=== PATIENT | male | born 1945 | race Caucasian/White ===

== ENCOUNTER 2024-07-11 19:17 | Inpatient (IN) | payer MEDICARE, OTHER, SELFPAY ==
[2024-07-11] VITALS (20 sets, daily range): BP systolic 73–118; BP diastolic 55–82; PULSE 80; BMI 27.3; BMI 26.3
--- NOTE | 2024-07-11 14:51 | EDRN ---
Kalen CALERO in room w/ pt at this time.
--- NOTE | 2024-07-11 14:55 | ED.GENMED ---
History of Present Illness
<Binta Dowell PA-C - Last Filed: 07/11/24 18:04>
General
Chief Complaint: Breathing Problem
Source: patient and ambulance crew
Time Seen by Provider: 07/11/24 14:47
History of Present Illness
History of Present Illness:
79yoM with a history of coronary artery disease, CHF, atrial fibrillation, COPD, hypertension, and hyperlipidemia presenting via EMS for evaluation of shortness of breath. Patient is a resident at the [facility]. Patient was started on a 10
day course of doxycycline for pneumonia last week. He has 3 doses left of his course. He started having worsening cough and dyspnea over the past 24 hours. EMS was called today due to his symptoms. He was found to be 84% on EMS arrival with
decreased breath sounds. He received a nebulizer treatment and 10mg IV Decadron prehospital. No fevers or chest pain.
Past History
<Binta Dowell PA-C - Last Filed: 07/11/24 18:04>
Past History
ED Past Medical History: Arrthythmia, CHF, HTN and SD
ED Past Surgical History: Orthopedic
Social History
Tobacco: Former smoker
Alcohol: None
Living: with family
Phy Exam
<Binta Dowell PA-C - Last Filed: 07/11/24 18:04>
General Physical Exam
General Presentation: mild distress
General Skin: warm and dry
General Habitus: normal
General Mental: alert
Cardiovascular Exam
Cardiovascular Exam: regular rate/rhythm and other (1+ pitting edema to bilateral lower extremities)
Pulmonary Exam
Pulmonary Exam: decreased breath sounds and other (Decreased breath sounds throughout. +Frequent cough. Mild respiratory distress noted. )
Skin Exam
Skin Exam: normal color and warm/dry
Psychiatric Exam
Psychiatric Exam: normal mood/affect
Scores
<Binta Dowell PA-C - Last Filed: 07/11/24 18:04>
Heart Failure Risk
Heart Failure Risk Score: Not Applicable
Course
<Binta Dowell PA-C - Last Filed: 07/11/24 18:04>
Orders/Labs/Results
Orders:
Orders
07/11/24 14:54
Electrocardiogram (*1) Urgent
Reason for Study: Shortness of Breath
EKG- Treatment ONCE
Albuterol Nebs [Ventolin Nebules] 5 mg INH R NOW STA
Ipratropium Nebs [Atrovent Nebules] 0.5 mg INH R NOW STA
07/11/24 14:55
CR Chest - 2 Views Urgent
Comment:
Reason For Exam: SOB
07/11/24 15:18
COVID-19 Antigen Urgent
Source: Nasal Swab
Complete Blood Count/With Diff Urgent
Comprehensive Metabolic Panel Urgent
Influenza A+B Rapid Molecular Urgent
ISRA Source: Nasal Swab
Specimen Description:
07/11/24 15:29
NT-proBNP Urgent
Troponin I Urgent
Venous Blood Gas Urgent
%Oxygen/Room Air: 2L
07/11/24 16:18
Potassium Urgent
Blood Culture Urgent
ISRA Source: Blood/Venous
Specimen Description:
07/11/24 16:19
Lactate Level [Lactic Acid] Urgent
07/11/24 16:47
Cefepime HCl [Maxipime] 2,000 mg IV NOW STA
07/11/24 16:48
Blood Culture Routine
ISRA Source: Blood/Venous
Specimen Description:
07/11/24 17:53
Saleem Catheter [Catheter- Indwelling] As Directed
Reason for insertion: Acute Kidney Injury
Discontinue Date/Time: 07/14/24 0600
07/11/24 17:54
Intake/ Output As Directed
Frequency: Per unit guidelines
Comment: strict intake and output monitoring
Weight As Directed
Frequency: Daily
Abnormal Lab Results
07/11/24 07/11/24 07/11/24
15:18 15:29 16:18
WBC 14.0 H 10^3/uL
(4.8-10.8)
RBC 3.17 L 10^6/uL
(4.70-6.10)
Hgb 10.0 L g/dL
(13.0-18.0)
Hct 28.5 L %
(39.0-52.0)
MCH 31.5 H pg
(27.0-31.0)
RDW 16.1 H %
(11.5-14.5)
MPV 11.7 H fL
(7.4-10.4)
Abs Immat Gran (auto) 0.1 H 10^3/uL
(0-0.05)
Absolute Neuts (auto) 11.1 H 10^3/uL
(1.4-6.5)
Absolute Monos (auto) 0.9 H 10^3/uL
(0.1-0.6)
Neutrophils % 79.6 H %
(42.2-75.2)
Lymphocytes % 11.7 L %
(20.5-51.1)
VBG pH 7.28 L
(7.32-7.43)
VBG pCO2 55 H mmHg
(35-48)
Potassium 5.8 H mmol/L 5.6 H mmol/L
(3.5-5.1) (3.5-5.1)
Chloride 108 H mmol/L
(98-107)
Carbon Dioxide 21 L mmol/L
(22-30)
BUN 44 H mg/dl
(9-20)
Creatinine 2.7 H mg/dL
(0.7-1.3)
Glucose 102 H mg/dl
(70-99)
AST 227 H U/L
(17-59)
ALT 146 H U/L
(0-50)
Alkaline Phosphatase 189 H U/L
(38-126)
Total Protein 5.9 L g/dl
(6.3-8.2)
Albumin 2.9 L g/dl
(3.5-5.0)
07/11/24 15:18
07/11/24 16:18
Vital Signs
Initial and Last Documented VS:
Initial Vital Signs
Temp Pulse Resp Pulse Ox
98 F 94 22 89
07/11/24 14:52 07/11/24 14:52 07/11/24 14:52 07/11/24 14:52
Last Documented Vital Signs
Temp Pulse Resp BP Pulse Ox
98 F 96 24 101/64 94
07/11/24 14:52 07/11/24 17:30 07/11/24 17:30 07/11/24 17:00 07/11/24 17:30
<Jeannine Rowell, DO - Last Filed: 07/11/24 16:45>
Orders/Labs/Results
Orders:
Orders
07/11/24 14:54
Electrocardiogram (*1) Urgent
Reason for Study: Shortness of Breath
EKG- Treatment ONCE
Albuterol Nebs [Ventolin Nebules] 5 mg INH R NOW STA
Ipratropium Nebs [Atrovent Nebules] 0.5 mg INH R NOW STA
07/11/24 14:55
CR Chest - 2 Views Urgent
Comment:
Reason For Exam: SOB
07/11/24 15:18
COVID-19 Antigen Urgent
Source: Nasal Swab
Complete Blood Count/With Diff Urgent
Comprehensive Metabolic Panel Urgent
Influenza A+B Rapid Molecular Urgent
ISRA Source: Nasal Swab
Specimen Description:
07/11/24 15:29
NT-proBNP Urgent
Troponin I Urgent
Venous Blood Gas Urgent
%Oxygen/Room Air: 2L
07/11/24 16:18
Potassium Urgent
Blood Culture Urgent
ISRA Source: Blood/Venous
Specimen Description:
07/11/24 16:19
Lactate Level [Lactic Acid] Urgent
07/11/24 16:47
Cefepime HCl [Maxipime] 2,000 mg IV NOW STA
07/11/24 16:48
Blood Culture Routine
ISRA Source: Blood/Venous
Specimen Description:
07/11/24 17:53
Saleem Catheter [Catheter- Indwelling] As Directed
Reason for insertion: Acute Kidney Injury
Discontinue Date/Time: 07/14/24 0600
07/11/24 17:54
Intake/ Output As Directed
Frequency: Per unit guidelines
Comment: strict intake and output monitoring
Weight As Directed
Frequency: Daily
Abnormal Lab Results
07/11/24 07/11/24 07/11/24
15:18 15:29 16:18
WBC 14.0 H 10^3/uL
(4.8-10.8)
RBC 3.17 L 10^6/uL
(4.70-6.10)
Hgb 10.0 L g/dL
(13.0-18.0)
Hct 28.5 L %
(39.0-52.0)
MCH 31.5 H pg
(27.0-31.0)
RDW 16.1 H %
(11.5-14.5)
MPV 11.7 H fL
(7.4-10.4)
Abs Immat Gran (auto) 0.1 H 10^3/uL
(0-0.05)
Absolute Neuts (auto) 11.1 H 10^3/uL
(1.4-6.5)
Absolute Monos (auto) 0.9 H 10^3/uL
(0.1-0.6)
Neutrophils % 79.6 H %
(42.2-75.2)
Lymphocytes % 11.7 L %
(20.5-51.1)
VBG pH 7.28 L
(7.32-7.43)
VBG pCO2 55 H mmHg
(35-48)
Potassium 5.8 H mmol/L 5.6 H mmol/L
(3.5-5.1) (3.5-5.1)
Chloride 108 H mmol/L
(98-107)
Carbon Dioxide 21 L mmol/L
(22-30)
BUN 44 H mg/dl
(9-20)
Creatinine 2.7 H mg/dL
(0.7-1.3)
Glucose 102 H mg/dl
(70-99)
AST 227 H U/L
(17-59)
ALT 146 H U/L
(0-50)
Alkaline Phosphatase 189 H U/L
(38-126)
Total Protein 5.9 L g/dl
(6.3-8.2)
Albumin 2.9 L g/dl
(3.5-5.0)
07/11/24 15:18
07/11/24 16:18
Vital Signs
Initial and Last Documented VS:
Initial Vital Signs
Temp Pulse Resp Pulse Ox
98 F 94 22 89
07/11/24 14:52 07/11/24 14:52 07/11/24 14:52 07/11/24 14:52
Last Documented Vital Signs
Temp Pulse Resp BP Pulse Ox
98 F 96 24 101/64 94
07/11/24 14:52 07/11/24 17:30 07/11/24 17:30 07/11/24 17:00 07/11/24 17:30
<Binta Dowell PA-C - Last Filed: 07/11/24 18:04>
MDM/Problems Addressed
Differential Diagnosis Includes:
79yoM here with SOB. Currently on doxycycline for pneumonia. Symptoms worsening over the past 24 hours. Hypoxic to 84% for EMS. Received IV Decadron prehospital. Patient in mild respiratory distress on arrival. Decreased breath sounds
throughout. Oxygen saturation 89%. Differential diagnosis includes but is not limited to: Pneumonia, COPD exacerbation, CHF exacerbation, COVID
Initial ED plan: Check cardiac labs, COVID/flu swab, lactate, blood cultures, EKG, and chest x-ray. Will give DuoNeb and reassess.
<Binta Dowell PA-C - Last Filed: 07/11/24 18:04>
*EKG
Interpreted by ED Provider?: Yes
EKG Intrepretation Date: 07/11/24
Heart Rate: 92
Rate: normal
Rhythm: sinus
[place]: left axis deviation
Interval: normal interval
Ischemia: non-specific ST changes
*Critical Care Note
Total Time (30-74mins, 75-104mins- exclusive of procedures): Not Applicable
<Binta Dowell PA-C - Last Filed: 07/11/24 18:04>
Update Note
Update Note:
COVID/flu negative. WBC 14, lactate is normal. CXR shows a L pleural effusion which daughter states he has a history of. Patient given IV Rocephin and was admitted for further management.
ED Attending Note
<JALEEL Damico Last Filed: 07/11/24 18:04>
-
Portions of this chart may have been created with voice recognition software.� Occasional wrong word or��sound alike� substitutions may have occurred due to the inherent limitations of voice recognition software.
<Jeannine Rowell DO - Last Filed: 07/11/24 16:45>
ED Attending Note
Patient seen and examined by attending physician: Yes
I performed the substantive portion of visit, reviewed & personally made and approve the management plan that is documented in note by myself or LEYDA.: Yes
I performed a history and physical exam of patient and discussed management with resident, I reviewed resident's note and agree with documented findings and plan of care.: Yes
ED Attending Note:
79-year-old male with history of CHF, COPD, A-fib on Eliquis, hypertension presenting to the emergency department for shortness of breath. Patient has had ongoing cough for more than a week, with diagnosed with pneumonia and started on doxycycline.
Daughter at bedside, notes no improvement in his symptoms. Prior to arrival, noted to have hypoxia per medics, placed on supplemental O2. Patient and daughter at bedside report no increased swelling to lower extremities. Patient without any
oxygen requirements at home. Patient denies any chest pain or fever. Vital signs significant for prehospital hypoxia and tachypnea.
On exam, patient is well-appearing, no acute distress, stable on supplemental O2. On lung exam, no focal abnormal lung sounds, no increased work of breathing. No lower extremity edema. Concern for failure of outpatient therapy with worsening
pneumonia versus CHF exacerbation. Plan for laboratory analysis, chest x-ray imaging. Will hold on fluids given known history of CHF.
16:00 - Patient with leukocytosis, will add lactic acid and blood culture. Again holding fluids for known CHF, pending chest x-ray imaging.
16:45 -chest x-ray shows a large left-sided pleural effusion. Will start broad-spectrum antibiotics, plan for admission.
Discharge Plan
Departure
Patient Disposition: Admit
Date of Disposition: 07/11/24
Time of Disposition: 16:59
Presentation/result/management discussed w/ accepting MD/DO: Hospitalist
Discharge Problem:
Acute hypoxemic respiratory failure
Prescriptions:
No Action
atorvastatin 80 MG tablet
80 mg PO DAILY
amiodarone [Pacerone] 200 MG tablet
200 mg PO DAILY
sertraline 100 MG tablet
100 mg PO DAILY
pantoprazole 40 MG tablet,delayed release (DR/EC)
40 mg PO DAILY
folic acid 1 MG tablet
1 mg PO DAILY
finasteride 5 MG tablet
5 mg PO DAILY
multivitamin with folic acid [Tab-A-Mone] 1 TABLET tablet
1 tab PO DAILY
Breztri Aerosphere 10.7 GM HFA aerosol inhaler
2 puff inhalation R BID
potassium chloride [Klor-Con M20] 20 MEQ tablet,ER particles/crystals
20 meq PO DAILY 30 Days Qty: 30 0RF
doxycycline hyclate 100 mg Capsule
100 mg PO BID
loperamide [Anti-Diarrhea] 2 mg Tablet
2 mg PO TID PRN (Reason: diarrhea)
allopurinol 100 mg Tablet
100 mg PO DAILY
spironolactone 25 mg Tablet
25 mg PO DAILY
ascorbic acid (vitamin C) [Vitamin C] 500 mg Tablet
500 mg PO DAILY
ferrous sulfate 325 mg (65 mg iron) Tablet
325 mg PO DAILY
bumetanide 0.5 mg Tablet
0.5 mg PO DAILY
albuterol sulfate [Ventolin HFA] 90 mcg/actuation Hfa Aerosol Inhaler
2 puff INHALATION Q6H PRN (Reason: SOB, wheezing)
ezetimibe 10 mg Tablet
10 mg PO DAILY
metoprolol tartrate 25 mg Tablet
25 mg PO BID
acetaminophen [Tylenol] 325 mg Capsule
650 mg PO Q4H PRN (Reason: temp >101)
Forrest Protect (zinc oxide) 12 % Cream
1 applic TOPICAL BID
Rx Instructions:
to coccyx
Forrest Protect (zinc oxide) 12 % Cream
1 applic TOPICAL BID PRN (Reason: coccyx prn wound care)
Eliquis 2.5 mg Tablet
2.5 mg PO BID
Insta-Glucose (with dextrin) 24 gram/31 gram Gel
1 ea PO PRN PRN (Reason: hypoglycemia)
Jardiance 10 mg Tablet
10 mg PO DAILY
[place] PFS 1-Pack Syringe 1 mg/0.2 mL Syringe
1 mg SC Q20M PRN (Reason: hypoglicemia)
Referrals:
Vikash De Souza MD [Family Provider] -
Interventions
Interventions:
*Risk Screen - Suicide Last Done: 07/11/24 14:56
*General Assessment Last Done: 07/11/24 14:56
*Neglect/Abuse Screening Last Done: 07/11/24 14:56
ED- Fall Risk Assessment Last Done: 07/11/24 14:56
*ED COVID-19 Vaccine History Last Done: 07/11/24 14:56
ED- Cardiac Assessment Last Done: 07/11/24 15:46
ED- Pulmonary Assessment Last Done: 07/11/24 15:46
Discharge Date and Time
Print Language: DUTCH
[2024-07-11 15:37] LABS: Venous Blood Gas B.E. -1.5 mmol/L (-4 to +4); Venous Blood Gas HCO3 25.8 mmol/L (22-27); Venous Blood Gas pCO2 55 mmHg (35-48); Venous Blood Gas pH 7.28 (7.32-7.43); Venous Blood Gas pO2 45 mmHg (30-50)
[2024-07-11 15:40] LABS: Hematocrit 28.5 % (39.0-52.0); Mean Corp Hgb Conc. 35.1 g/dL (33.0-37.0); Mean Corpuscular Hgb 31.5 pg (27.0-31.0); Mean Corpuscular Volume 89.9 fL (80.0-94.0); Mean Platelet Volume 11.7 fL (7.4-10.4); Platelet Count 373 10^3/uL (130-400); Red Blood Cell Count 3.17 10^6/uL (4.70-6.10); Red Cell Dist. Width 16.1 % (11.5-14.5)
--- NOTE | 2024-07-11 15:48 | EDRN ---
Dr. Rowell in room w/pt at this time.
[2024-07-11 15:49] LABS: ALT (SGPT) 146 U/L (0-50); AST (SGOT) 227 U/L (17-59); Albumin 2.9 g/dl (3.5-5.0); Alkaline Phosphatase 189 U/L (38-126); Blood Urea Nitrogen 44 mg/dl (9-20); Calcium 8.7 mg/dl (8.4-10.2); Carbon Dioxide 21 mmol/L (22-30); Chloride 108 mmol/L (98-107); Estimated Creatinine Clearance 23 ml/min; Glucose 102 mg/dl (70-99); Potassium 5.8 mmol/L (3.5-5.1); Sodium 140 mmol/L (135-145); Total Bilirubin 1.1 mg/dl (0.2-1.3); Total Protein 5.9 g/dl (6.3-8.2)
[2024-07-11 15:50] LABS: % Basophils 0.6 % (0-2); % Eosinophils 1.1 % (0-6); % Immature Granulocytes 0.4 % (0-0.5); % Lymphocytes 11.7 % (20.5-51.1); % Monocytes 6.6 % (1.7-9.3); % Neutrophils 79.6 % (42.2-75.2); Absolute Basophils 0.1 10^3/uL (0-0.2); Absolute Eosinophils 0.2 10^3/uL (0-0.7); Absolute Immature Granulocytes 0.1 10^3/uL (0-0.05); Absolute Lymphocytes 1.6 10^3/uL (1.2-3.4); Absolute Monocytes 0.9 10^3/uL (0.1-0.6); Absolute Neutrophils 11.1 10^3/uL (1.4-6.5); Nucleated Red Blood Cells % 0 % (-)
[2024-07-11] MEDS: ATROVENT NEBULES 0.5 MG INH (15:50)
[2024-07-11] MEDS: VENTOLIN NEBULES 5 MG INH (15:50)
[2024-07-11 15:54] LABS: COVID-19 Antigen Negative (Negative)
[2024-07-11 16:01] LABS: NT-proBNP 5680 pg/ml; Troponin I 0.014 ng/ml
[2024-07-11 16:40] LABS: Lactic Acid 1.6 mmol/L (0.7-2.0)
[2024-07-11 17:25] LABS: Potassium 5.6 mmol/L (3.5-5.1)
--- NOTE | 2024-07-11 17:25 | EDRN ---
Pt had a saturated depends on that was changed at this time.
--- NOTE | 2024-07-11 17:27 | EDRN ---
Pt had sacral redness noted over bilateral buttocks as well, no open areas noted at this time, daughter stated a tiny open area was noted 07/10. Pt has multiple scabs on bilateral legs and wounds on bilateral great and #2 toes both feet. Daughter
stated to this nurse pt has been falling a lot.
[2024-07-11] MEDS: MAXIPIME 2000 MG IV (17:28)
--- NOTE | 2024-07-11 17:40 | EDRN ---
My CALERO in room w /pt
[2024-07-11] MEDS: LOKELMA 10 GRAM PO (18:24)
--- NOTE | 2024-07-11 18:26 | HPS.HSE ---
Family Physician
-
Family Physician: Vikash De Souza
Chief Complaint
-
Cough and Shortness of Breath
History of Present Illness
Patient is an 79yo male with a history of CAD, CHF, A-Fib, cirrhosis, COPD not on home oxygen, HTN, HLD, and BPH presents from assisted living ([facility]) for cough and SOB. His symptoms first started a couple weeks ago. He was then
diagnosed with a pneumonia and placed on a 10-day course of doxycycline, which he has been taking for 6 days now. However, today his dyspnea and cough acutely worsened and EMS found his O2 at 84%. He has not had fever, chills or night sweats over
the past couple weeks. His cough is nonproductive. A few days ago he received several additional doses of bumetanide for increased swelling in his right hand with some improvement. Patient denies any chest pains or palpitations.
Medical History
Past Medical History
Past Medical History: Reports Other
Additional Past Medical History:
Coronary Artery Disease s/p stent
Chronic HFpEF
Paroxysmal Atrial Fibrillation
Subdural Hematoma
Essential Hypertension
Orthostatic Hypotension
Hyperlipidemia
CKD Stage IIIB
COPD
BPH
GERD / GI Bleed
Depression
Progressive Cognitive Decline
Alcohol Use Disorder
Alcohol Cirrhosis
Gout
Past Surgical History: Reports Other
Additional Past Surgical History:
Bilateral knee replacement
Left carpal tunnel
Tonsillectomy
Appendectomy
Social History
Tobacco: Former Smoker (Quit over 50 years ago)
Alcohol: Former (Quit in May 2024)
Living: Assisted Living
Family History
Family History: Not pertinent
Allergies / Home Medications
Allergies reflects when Allergies were last updated in [employer].
Home Medications with original date entered in [employer]
Allergy/Medication List:
Allergies
Allergy/AdvReac Type Severity Reaction Status Date / Time
No Known Allergies Allergy Unverified 05/09/21 17:00
Home Medications
amiodarone 200 mg tablet (Pacerone) 200 mg PO DAILY Arrhythmia 05/09/21
atorvastatin 80 mg tablet 80 mg PO DAILY High cholesterol 05/09/21
budesonide 160 mcg-glycopyr 9 mcg-formot 4.8 mcg/actuation HFA inhaler (Breztri Aerosphere) 2 puff inhalation R BID Lung/breathing issues 05/09/21
finasteride 5 mg tablet 5 mg PO DAILY Urinary issue 05/09/21
folic acid 1 mg tablet 1 mg PO DAILY Supplement 05/09/21
multivitamin with folic acid 400 mcg tablet (Tab-A-Mone) 1 tab PO DAILY Supplement 05/09/21
pantoprazole 40 mg tablet,delayed release 40 mg PO DAILY Gastrointestinal issue 05/09/21
sertraline 100 mg tablet 100 mg PO DAILY Mental Health/Anxiety 05/09/21
potassium chloride 20 mEq tablet,extended release(part/cryst) (Klor-Con M) 20 meq PO DAILY 30 days #30 tabs 05/13/21
acetaminophen 325 mg capsule (Tylenol) 650 mg PO Q4H PRN temp >101 07/11/24
albuterol sulfate 90 mcg/actuation aerosol inhaler (Ventolin HFA) 2 puff inhalation Q6H PRN SOB, wheezing 07/11/24
allopurinol 100 mg tablet 100 mg PO DAILY 07/11/24
apixaban 2.5 mg tablet (Eliquis) 2.5 mg PO BID 07/11/24
ascorbic acid (vitamin C) 500 mg tablet (Vitamin C) 500 mg PO DAILY 07/11/24
bumetanide 0.5 mg tablet 0.5 mg PO DAILY 07/11/24
rcntbbtf-upgczer-bgseuij 24 gram/31 gram oral gel (Insta-Glucose (with dextrin)) 1 ea PO PRN PRN hypoglycemia 07/11/24
doxycycline hyclate 100 mg capsule 100 mg PO BID 07/11/24
empagliflozin 10 mg tablet (Jardiance) 10 mg PO DAILY 07/11/24
ezetimibe 10 mg tablet 10 mg PO DAILY 07/11/24
ferrous sulfate 325 mg (65 mg iron) tablet 325 mg PO DAILY 07/11/24
glucagon 1 mg/0.2 mL subcutaneous syringe ([place] PFS 1-Pack) 1 mg SC Q20M PRN hypoglicemia 07/11/24
loperamide 2 mg tablet 2 mg PO TID PRN diarrhea 07/11/24
metoprolol tartrate 25 mg tablet 25 mg PO BID 07/11/24
spironolactone 25 mg tablet 25 mg PO DAILY 07/11/24
zinc oxide 12 % topical cream (Forrest Protect (zinc oxide)) 1 applic topical BID 07/11/24
zinc oxide 12 % topical cream (Forrest Protect (zinc oxide)) 1 applic topical BID PRN coccyx prn wound care 07/11/24
Review of Systems
-
A 12 point ROS was completed and negative except as noted: Yes
Constitutional: Denies Fever or Chills
Respiratory: Reports Cough and Trouble Breathing
Cardiac: Denies Chest Pain or Palpitations
Abdomen/GI: Denies Abdominal Pain
: Reports Frequency and Urgency; Denies Dysuria
Physical Exam
Vital Signs
Vital Signs
Temp Pulse Resp BP Pulse Ox
98 F 100 22 91/71 93
07/11/24 14:52 07/11/24 18:09 07/11/24 18:09 07/11/24 18:09 07/11/24 18:09
Physical Exam
General: Comfortable and Conversant
HEENT: Anicteric, Moist mucous membranes and Oxygen (Nasal Cannula)
Respiratory: Other (Absent breath sounds in left middle and lower regions otherwise clear)
Cardiac: S1/S2 and Regular Rhythm
GI: Soft and Non Tender
Rectal: Deferred by Provider
Musculoskeletal: No Clubbing, No Cyanosis and Other (+2 pitting edema bilateral lower extremities)
Skin: Warm and Dry
Neuro: Awake, Alert and Nonfocal/grossly intact
Psych: Calm
Laboratory Results
-
07/11/24 15:18
Laboratory Results
Lactic Acid 1.6 mmol/L (0.7-2.0) 07/11/24 16:19
Total Bilirubin 1.1 mg/dl (0.2-1.3) 07/11/24 15:18
AST 227 U/L (17-59) H 07/11/24 15:18
ALT 146 U/L (0-50) H 07/11/24 15:18
Alkaline Phosphatase 189 U/L (38-126) H 07/11/24 15:18
Troponin I 0.014 ng/ml 07/11/24 15:29
Data Reviewed
-
Lab Data: Labs Reviewed by me
Impression/Plan
-
Acute Hypoxic Respiratory Insufficiency secondary to CHF and Pleural Effusion
-Continue supplemental oxygen
-Wean as able
Left Pleural Effusion, possibly related to heart failure vs empyema
-Consult IR
-Hold Eliquis for thoracentesis per IR
-Fluid studies ordered
-Broaden antibiotics to Vancomycin and Cefepime
Hyperkalemia and Acute Kidney Injury on CKD III
-Creatinine 2.16 on Jun 10
-Place Saleem catheter
-Hold potassium supplement and spironolactone
-Hold Jardiance
-Repeat potassium later this evening and in AM
Chronic HFpEF, possible component of acute
-Difficult situation in setting of hypotension
-Consult Cardiology
-Check Echocardiogram
-Monitor Is&Os and Daily Weights
Paroxysmal Atrial Fibrillation
-Eliquis on hold of thoracentesis
-Continue amiodarone for rhythm control
-Hold Metoprolol due to low BP
Hyperlipidemia
-Continue atorvastatin and Zetia
COPD
-Continue Pulmicort Neb and Duoneb QID and PRN
Depression
-Continue sertraline
Progressive Cognitive Decline
-Monitor for mood/behavior changes during hospitalization
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
-Stable
DVT proph: SCDs until able to resume Eliquis
Code Status: DNR
[2024-07-11] MEDS: NOVOLIN R 10 UNITS IV (18:27)
--- NOTE | 2024-07-11 18:30 | EDRN ---
Unable to take wound pix of areas seen as camera battery was .
[2024-07-11] MEDS: DEXTROSE 50% SYRINGE 25 GRAMS IV (18:32)
--- NOTE | 2024-07-11 18:36 | EDRN ---
Pt administered a diet gena marla after hospitalist Dr. Jayne sahniayed it.
--- NOTE | 2024-07-11 19:11 | W.PN.UPDATE ---
Update Note
Progress Note Update
This is an addendum to the H&P written by Jerilyn Browne on 07/11/2024.
Patient seen and examined independently with PA. 79-year-old male past medical history of CAD, CHF, atrial fibrillation, cirrhosis, COPD, hypertension, hyperlipidemia, BPH presenting for cough and shortness of breath starting few weeks ago treated
with doxycycline. Today with worsening of cough and shortness of breath.
Labs show leukocytosis, hypokalemia, CHUY and transaminitis. Cardiac BNP 5600. Chest x-ray shows moderate left pleural effusion with adjacent parenchymal opacity which is increased from prior.
Labs seem to be consistent with CHF exacerbation however with hypotension with blood pressure in the 90s, tachycardia and leukocytosis there is concern for sepsis secondary to pneumonia/empyema.
Cannot diurese due to hypotension. Check blood cultures. Vancomycin/cefepime. IR consulted for thoracentesis. Hold antihypertensives. Check echocardiogram. Cardiology consulted. IR requesting that we hold Eliquis.
Hyperkalemia secondary to spironolactone/potassium supplementation so hold.
[2024-07-11] MEDS: PULMICORT 0.5 MG INH (20:11)
[2024-07-11] MEDS: DUONEB 3 ML INH (20:12)
[2024-07-11] MEDS: MUCINEX 600 MG PO (21:06)
[2024-07-11] MEDS: ProAmatine 10 MG PO (21:06)
[2024-07-11 21:42] LABS: Potassium 5.6 mmol/L (3.5-5.1)
[2024-07-11] MEDS: VANCOCIN 540 MG IV (21:56)
--- NOTE | 2024-07-11 22:33 | PHA.VAN.IN ---
Assessment
- Assessment
Renal Function: Appears elevated from baseline
Maximum Temperature: 97.9
Minimum Temperature: 98
Concomitant Antimicrobials: cefepine
Plan
- Plan
Initial / Loading Dose: 2000mg 07/11 21:56
Maintenance Regimen: dose by level
Monitoring: r 8 am
MRSA Screen: Ordered per protocol (PCR)
Pharmacokinetics Vancomycin I
- -
Patient Age: 79
Patient Sex: Male
Vancomycin Day #: 1
Indication: Pulmonary/Respiratory
Requesting Provider: GALILEA Sheikh
Pertinent Antimicrobial Allergies:
no known allergies
Height / Weight:
Height 5 ft 10 in
Actual Weight 83.1 kg
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
- Vital Signs / Lab Results
Temp Pulse Resp BP Pulse Ox
97.9 F 92 16 96/67 98
07/11/24 19:45 07/11/24 21:06 07/11/24 20:15 07/11/24 21:06 07/11/24 20:15
Lab Results - Hematology
07/11/24
15:18
WBC 14.0 H
Lab Results - Chemistry
07/11/24
15:18
BUN 44 H
Creatinine 2.7 H
Estimated Creat Clear 23
Albumin 2.9 L
07/11/24
16:19
Lactic Acid 1.6
Microbiology Results
07/11/24 15:18 Influenza Types A & B (DEYANIRA) - Final
Nasal Swab Negative for Influenza A & B, NAAT
Negative results must be combined with clinical observations
and patient history.
Nucleic Acid Amplification test (NAAT)performed on the
[employer] platform.
[2024-07-12] VITALS (54 sets, daily range): BP systolic 75–189; BP diastolic 55–169; PULSE 83–85; BMI 26.8
[2024-07-12 00:03] LABS: Glucose - Point of Care 121 mg/dl (70-99)
[2024-07-12] MEDS: NSS 250 IV (00:10)
[2024-07-12 01:31] LABS: Potassium 5.4 mmol/L (3.5-5.1)
--- NOTE | 2024-07-12 03:49 | PTCARENOTE ---
Addendum entered by Johanna Blevins RN 07/12/24 07:32:
correction *CPAP
Addendum entered by Johanna Blevins RN 07/12/24 06:27:
Pt morning labs show H&H drop and k still at 5.4. Night GRADUATE ADVISOR made aware.
Original Note:
Pt admit from ED. Pt AAO to self, confusion on where he is but knows he is confused. Pt on 2L NC spo2 95%. Pt having hypotension nigh GRADUATE ADVISOR made aware. Midodrine ordered. Pt placed on BiPAP per GRADUATE ADVISOR order. Pt tolerating for a hour at a time. Later in
shift admitting PA (Pavan) ordering 250 NS bolus. Saleem placed per order for strict I&O for CHUY. Pt having orders for glucose checks, verified with admitting PA (Pavan) only one time glucose check needed. MID line placed for access due to
edema. Assessment care and vitals as needed.
[2024-07-12 04:52] LABS: Hematocrit 24.3 % (39.0-52.0); Hemoglobin 8.6 g/dL (13.0-18.0); Mean Corp Hgb Conc. 35.4 g/dL (33.0-37.0); Mean Corpuscular Hgb 32.3 pg (27.0-31.0); Mean Corpuscular Volume 91.4 fL (80.0-94.0); Mean Platelet Volume 11.9 fL (7.4-10.4); Platelet Count 306 10^3/uL (130-400); Red Blood Cell Count 2.66 10^6/uL (4.70-6.10); Red Cell Dist. Width 15.9 % (11.5-14.5); White Blood Cell Count 17.8 10^3/uL (4.8-10.8)
[2024-07-12 05:15] LABS: Blood Urea Nitrogen 44 mg/dl (9-20); Calcium 8.7 mg/dl (8.4-10.2); Carbon Dioxide 22 mmol/L (22-30); Chloride 107 mmol/L (98-107); Estimated Creatinine Clearance 21 ml/min; Glucose 127 mg/dl (70-99); LDH 282 U/L (120-246); Magnesium 1.8 mg/dl (1.6-2.3); Potassium 5.4 mmol/L (3.5-5.1); Sodium 141 mmol/L (135-145); Total Protein 5.2 g/dl (6.3-8.2)
[2024-07-12 05:31] LABS: Vancomycin Random 23.3 ug/ml
[2024-07-12] MEDS: MAXIPIME 1000 MG IV ×2 (06:19→18:19)
[2024-07-12] MEDS: LOKELMA 10 GRAM PO ×3 (06:19→18:19)
[2024-07-12] MEDS: STERILE WATER FOR INJECTION 10 ML IV ×2 (06:19→18:19)
[2024-07-12] MEDS: PULMICORT 0.5 MG INH ×2 (07:13→20:50)
[2024-07-12] MEDS: DUONEB 3 ML INH ×4 (07:13→20:45)
--- NOTE | 2024-07-12 07:47 | W.PN.HOSP.TC ---
Today's Communication/Plan
-
see A/P
Assessment / Plan
Assessment / Plan
HPI: 79yo male with a history of CAD, CHF, A-Fib, cirrhosis, COPD not on home oxygen, HTN, HLD, and BPH presented from assisted living ([facility]) for cough and SOB. His symptoms first started a couple weeks ago. He was then diagnosed with
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 However, his dyspnea and cough acutely worsened and EMS found his O2 at 84%. He has not had fever, chills or night sweats over the past couple weeks.
His cough is nonproductive. A few days ago he received several additional doses of bumetanide for increased swelling in his right hand with some improvement. Patient denies any chest pains or palpitations.
A/P:
# Acute Hypoxic Respiratory Insufficiency secondary to CHF, Pleural Effusion and possible pneumonia
COVID negative
Continue supplemental oxygen, wean down from 5 to 3L NC, cont to wean as able
Cont DuoNeb ATC and PRN
# Left Pleural Effusion, possibly related to heart failure vs empyema
Consult IR for thoracentesis ; Hold Eliquis for thoracentesis per IR
Fluid studies ordered
Broaden antibiotics to Vancomycin and Cefepime
Check blood cultures.
Check echocardiogram.
Cardiology consulted.
# Hyperkalemia secondary to spironolactone/potassium supplementation
hold both
Cont to monitor K level
# Acute Kidney Injury on CKD III
Creatinine 2.7 on admission, today at 2.9, baseline ?1.3
Pl[address] Saleem catheter from ED
Hold Jardiance
Renal CS
# Chronic HFpEF, possible component of acute
Difficult situation in setting of hypotension
Consult Cardiology
Check Echocardiogram
Monitor Is&Os and Daily Weights
# Elevated LFT, possibly related to liver congestion
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
Cont to monitor LFT
Consider Abd US if LFT remain elevated
# Paroxysmal Atrial Fibrillation
Eliquis on hold of thoracentesis
Continue amiodarone for rhythm control
Hold Metoprolol due to low BP
# Hyperlipidemia
Holding atorvastatin and Zetia due to elevated LFT
# COPD
Continue Pulmicort Neb and Duoneb QID and PRN
# Depression
Continue sertraline
# Progressive Cognitive Decline
Monitor for mood/behavior changes during hospitalization
# Alcoholic Cirrhosis w/o Ascites
Stable
DVT proph: SCDs until able to resume Eliquis
Code Status: DNR
DW RN
updated daughter on the phone
total time spent 51 min
Anticipated Discharge: > 48 hours
Subjective/Interval History
-
Date of Service: July 12, 2024
Objective Data
-
Labs:
Laboratory Results
07/11/24 07/12/24 07/12/24
21:01 01:09 04:12
WBC 17.8 H
Hgb 8.6 L
Hct 24.3 L
Plt Count 306
Sodium 141
Potassium 5.6 H 5.4 H 5.4 H
Chloride 107
Carbon Dioxide 22
BUN 44 H
Creatinine 2.9 H
Glucose 127 H
Calcium 8.7
Vital Signs:
Vital Signs
Temp Pulse Resp BP Pulse Ox
36.5 C 88 14 93/81 94
07/12/24 05:36 07/12/24 07:30 07/12/24 07:30 07/12/24 07:30 07/12/24 07:15
I&O
07/11/24 07/12/24 07/13/24
06:59 06:59 06:59
Intake Total 80 / 80
Output Total 175 / 175
Balance -95 / -95
Review of Systems
-
Respiratory: Reports Cough
Physical Exam
-
General: Well Developed, Well Nourished, Comfortable, Respiratory Distress and Conversant
HEENT: Normocephalic, Atraumatic, Nose Appears Normal, Ears Appear Normal and Oxygen (5 -> 3L NC)
Respiratory: Clear to Auscultation, Non Labored Respirations and Decreased Breath Sounds (LLL); Negative Accessory Resp Muscle Use
Cardiac: Regular Rhythm and S1/S2
GI: Soft, Nontender, Nondistended and Normal Bowel Sounds
Skin: Warm and Dry
Neuro: Awake and Alert
Psych: Calm
Data Reviewed
-
Diagnostic Radiology: Image personally visualized and interpreted and Report Reviewed by me
Labs: Labs Reviewed by me
--- NOTE | 2024-07-12 07:58 | PHA.VAN.FU ---
Vancomycin Assessment / Plan
- Assessment
Renal Function: SCR Increasing
WBC's are: Trending Up
In the past 24 hrs, patient has been: Afebrile
Concomitant Antimicrobials: cefepime
- Assessment - Therapeutic Drug Monitoring
Random Level: 23.3
- Dosing Plan
Dosing by Level: Hold off on dosing today
- Monitoring Plan
Random Level: 9 in am
- Follow Up
Pharmacy will continue to follow.
Vancomycin Follow UP
- -
Patient Age: 79
Patient Sex: Male
Vancomycin Day #: 2
Indication: Pulmonary/Respiratory
Requesting Provider: GALILEA Sheikh
Pertinent Antimicrobial Allergies:
no known allergies
Height / Weight:
Height 5 ft 10 in
Actual Weight 84.6 kg
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
- Vital Signs / Lab Results
Temp Pulse Resp BP Pulse Ox
97.7 F 88 14 93/81 94
07/12/24 05:36 07/12/24 07:30 07/12/24 07:30 07/12/24 07:30 07/12/24 07:15
Lab Results - Hematology
07/11/24 07/12/24
15:18 04:12
WBC 14.0 H 17.8 H
Lab Results - Chemistry
07/11/24 07/12/24
15:18 04:12
BUN 44 H 44 H
Creatinine 2.7 H 2.9 H
Estimated Creat Clear 23 21
Albumin 2.9 L
07/11/24
16:19
Lactic Acid 1.6
Microbiology Results
07/11/24 15:18 Influenza Types A & B (DEYANIRA) - Final
Nasal Swab Negative for Influenza A & B, NAAT
Negative results must be combined with clinical observations
and patient history.
Nucleic Acid Amplification test (NAAT)performed on the
[employer] NOW platform.
Therapeutic Drug Monitoring
Random Vancomycin 23.3 ug/ml 07/12/24 04:12
--- NOTE | 2024-07-12 08:07 | PTCARENOTE ---
0700 Assumed care . Patient awake and disoriented to place and time . Able to state his name. Speech clear. Neuro check WNL
SR 87 ; +1 non pitting edema pedal pulses weak on palpation ; BP via RT upper Arm 93/81 MAP 87; RR 15; HR 90; 100% /5L Oxygen decrease to 2L /100% . Frequent non productive dry cough
Abdomen round BS present . : Indwelling Saleem draining clear elie urine . Will monitor I/O .
skin: toes covered with open areas with dry blood multiple bruises .
Bed alarm activated for pt's safety ; Cardiology and Nephrology consult pending
[2024-07-12] MEDS: TESSALON PERLES 200 MG PO (08:40)
[2024-07-12] MEDS: FOLVITE 1 MG PO (08:40)
[2024-07-12] MEDS: PROTONIX 40 MG PO (08:40)
[2024-07-12] MEDS: PROSCAR 5 MG PO (08:40)
[2024-07-12] MEDS: ZYLOPRIM 100 MG PO (08:40)
[2024-07-12] MEDS: MUCINEX 600 MG PO ×2 (08:40→20:09)
[2024-07-12] MEDS: ZOLOFT 100 MG PO (08:41)
[2024-07-12] MEDS: DESENEX/MITRAZOL/ZEASORB 1 APPLIC TOPICAL ×2 (08:41→20:09)
--- NOTE | 2024-07-12 08:47 | W.CON.NEPH ---
Consultation
-
Date/Time Consultation Requested: 07/12/2024 8:30 AM
Date/Time Consultation Performed: 07/12/24 845 AM
Requesting Provider: Dr. Burroughs
Performing Provider: Dr. Rod
Reason for Consultation: Acute kidney injury
Medical History
-
Chief Complaint: Acute kidney
History of Present Illness:
Patient is an 79yo male with a history of CAD, CHF maintained on bumex, A-Fib (maintained on metoprolol amiodarone and anticoagulated with Eliquis), CKD (creatinine 1.3 on 05/13/21), cirrhosis, COPD not on home oxygen, HTN, HLD, and BPH presents from
assisted living ([facility]) for cough and SOB. His symptoms first started a couple weeks ago. He was then diagnosed with a pneumonia and placed on a 10-day course of doxycycline, which he has been taking for 6 days now. However, his dyspnea
and cough acutely worsened and EMS found his O2 at 84%. He has not had fever, chills or night sweats over the past couple weeks. His cough is nonproductive. A few days ago he received several additional doses of bumetanide for increased swelling in
his right hand with some improvement. Patient denies any chest pains or palpitations. When he presented to the hospital he was in acute renal failure with a creatinine of 2.7 now up to 2.9 and nephrology was consulted for acute on chronic renal
failure.
Past Medical History
Coronary Artery Disease s/p stent
Chronic HFpEF
Paroxysmal Atrial Fibrillation
Subdural Hematoma
Essential Hypertension
Orthostatic Hypotension
Hyperlipidemia
CKD Stage IIIB
COPD
BPH
GERD / GI Bleed
Depression
Progressive Cognitive Decline
Alcohol Use Disorder
Alcohol Cirrhosis
Gout
Social History
Tobacco: Former Smoker
Alcohol: Former
Living: Assisted Living
Family History
no CKD
Allergies / Home Medications
Allergy/AdvReac Type Severity Reaction Status Date / Time
No Known Allergies Allergy Unverified 05/09/21 17:00
�Medication �Instructions �Recorded �Confirmed �Type
amiodarone 200 mg tablet (Pacerone) 200 mg PO DAILY Arrhythmia 05/09/21 07/11/24 History
atorvastatin 80 mg tablet 80 mg PO DAILY High cholesterol 05/09/21 07/11/24 History
budesonide 160 mcg-glycopyr 9 2 puff inhalation R BID 05/09/21 07/11/24 History
mcg-formot 4.8 mcg/actuation HFA Lung/breathing issues
inhaler (Breztri Dine inphere)
finasteride 5 mg tablet 5 mg PO DAILY Urinary issue 05/09/21 07/11/24 History
folic acid 1 mg tablet 1 mg PO DAILY Supplement 05/09/21 07/11/24 History
multivitamin with folic acid 400 1 tab PO DAILY Supplement 05/09/21 07/11/24 History
mcg tablet (Tab-A-Mone)
pantoprazole 40 mg tablet,delayed 40 mg PO DAILY Gastrointestinal 05/09/21 07/11/24 History
release issue
sertraline 100 mg tablet 100 mg PO DAILY Mental 05/09/21 07/11/24 History
Health/Anxiety
acetaminophen 325 mg capsule 650 mg PO Q4H PRN temp >101 07/11/24 07/11/24 History
(Tylenol)
albuterol sulfate 90 mcg/actuation 2 puff inhalation Q6H PRN SOB, 07/11/24 07/11/24 History
aerosol inhaler (Ventolin HFA) wheezing
allopurinol 100 mg tablet 100 mg PO DAILY Gout 07/11/24 07/11/24 History
apixaban 2.5 mg tablet (Eliquis) 2.5 mg PO BID Blood Clot 07/11/24 07/11/24 History
Prevention/Tx
ascorbic acid (vitamin C) 500 mg 500 mg PO DAILY Supplement 07/11/24 07/11/24 History
tablet (Vitamin C)
bumetanide 0.5 mg tablet 0.5 mg PO DAILY Fluid 07/11/24 07/11/24 History
Retention/Swelling
gnulcorh-omszzfq-jpdbpbq 24 1 ea PO PRN PRN hypoglycemia 07/11/24 07/11/24 History
gram/31 gram oral gel
(Insta-Glucose (with dextrin))
doxycycline hyclate 100 mg capsule 100 mg PO BID Infection 07/11/24 07/11/24 History
empagliflozin 10 mg tablet 10 mg PO DAILY Diabetes 07/11/24 07/11/24 History
(Jardiance)
ezetimibe 10 mg tablet 10 mg PO DAILY High Cholesterol 07/11/24 07/11/24 History
ferrous sulfate 325 mg (65 mg 325 mg PO DAILY Supplement 07/11/24 07/11/24 History
iron) tablet
glucagon 1 mg/0.2 mL subcutaneous 1 mg SC Q20M PRN hypoglicemia 07/11/24 07/11/24 History
syringe (Gvoke PFS 1-Pack)
loperamide 2 mg tablet 2 mg PO TID PRN diarrhea 07/11/24 07/11/24 History
metoprolol tartrate 25 mg tablet 25 mg PO BID Blood Pressure 07/11/24 07/11/24 History
spironolactone 25 mg tablet 25 mg PO DAILY Fluid 07/11/24 07/11/24 History
Retention/Swelling
zinc oxide 12 % topical cream 1 applic topical BID PRN coccyx 07/11/24 07/11/24 History
(Forrest Protect (zinc oxide)) prn wound care
zinc oxide 12 % topical cream 1 applic topical BID Skin Issues 07/11/24 07/11/24 History
(Forrest Protect (zinc oxide))
potassium chloride 20 mEq 20 meq PO DAILY Supplement 07/12/24 07/11/24 History
tablet,extended
release(part/cryst) (Klor-Con M)
Review of Systems
-
Unable to obtain full review of systems at this time due to: Dementia
History Source: Patient
All other systems: Negative unless noted
: Other (ivey)
Neurological: Other (confusion:not oriented to time or place)
Physical Exam
Vital Signs
Vital Signs
Temp Pulse Resp BP Pulse Ox
97.7 F 88 14 93/81 94
07/12/24 05:36 07/12/24 07:30 07/12/24 07:30 07/12/24 07:30 07/12/24 07:15
Lab Results
07/12/24 04:12
07/12/24 04:12
WBC 17.8 10^3/uL (4.8-10.8) H 07/12/24 04:12
RBC 2.66 10^6/uL (4.70-6.10) L 07/12/24 04:12
Hgb 8.6 g/dL (13.0-18.0) L 07/12/24 04:12
Hct 24.3 % (39.0-52.0) L 07/12/24 04:12
Plt Count 306 10^3/uL (130-400) 07/12/24 04:12
Sodium 141 mmol/L (135-145) 07/12/24 04:12
Potassium 5.4 mmol/L (3.5-5.1) H 07/12/24 04:12
Chloride 107 mmol/L (98-107) 07/12/24 04:12
Carbon Dioxide 22 mmol/L (22-30) 07/12/24 04:12
BUN 44 mg/dl (9-20) H 07/12/24 04:12
Creatinine 2.9 mg/dL (0.7-1.3) H 07/12/24 04:12
eGFR 21.20 07/12/24 04:12
Glucose 127 mg/dl (70-99) H 07/12/24 04:12
Calcium 8.7 mg/dl (8.4-10.2) 07/12/24 04:12
Gqj-L-Vozgdkwoepn Pept 5680 pg/ml 07/11/24 15:29
Albumin 2.9 g/dl (3.5-5.0) L 07/11/24 15:18
Physical Exam
General: AOx1, Nontoxic , NAD
HEENT: PERRL, EOMI, Anicteric, Conjunctivae Clear, Ear/Nose Intact, Hearing Normal, Oropharynx Clear/Moist, Dentition Intact, Facial Symmetry, Neck Supple, Neck: Trachea Midline, No JVD and No Thyromegaly, no Bruits
Respiratory: Profound decreased breath sounds along left lung field bilaterally with normal lung exersion
Cardiac: S1/S2 and Regular Rate/Rhythm
Breast: Deferred by me
Abdomen: Soft, Nontender, Nondistended, Normal Bowel Sounds and No Hepatosplenomegaly
Rectal: Deferred by Provider
Genito-urinary: No Costovertebral Tenderness
Extremities: No Clubbing, No Cyanosis and plus 1 central edema
Skin: No Rash or open lesions
Neuro: Nonfocal/Grossly Intact, CN II-XII (Intact) and Strength (Musculoskeletal exam 5 out of 5 both upper and lower extremities)
Hematologic/Lymphatic: No Cervical Lymphadenopathy, No Submandibular Lymphadenopathy and No Supraclavicular Lymphadenopathy
Psych: Mood/afflect pleasant, Insight/judgement good and Appropriate
Vascular: plus 1 pedal and radial pulses
Data Reviewed
-
Radiology: Image Personally Visualized and interpreted (Chest x-ray personally reviewed: Large left pleural effusion noted, no chf)
Labs: Labs Reviewed by me (BMP CBC)
Old Records: Reviewed (Old creatinine reviewed at 1.3 from May 2021)
Assessment/Plan
-
Impression:
Hypoxic respiratory failure
Hypotension
Acute kidney injury
Chronic kidney disease stage IIIb
Hyperkalemia
Left pleural effusion
Chronic HFpEF
Paroxysmal atrial fibrillation
COPD
Alcoholic cirrhosis
Cognitive decline
Transaminitis
Plan:
check urinalysis and fractional secretion of sodium RE: CHUY/CKD
I suspect acute kidney injury is hemodynamically induced given profoundly low blood pressure
Will provide IV fluids and pressor and/or midodrine to support blood pressure, can provide IV albumin for hypotension in setting of hypoalbuminemia
now with [facility]
We will order kidney and bladder ultrasound tomorrow morning
Aldactone and SGLT2 inhibitor held in setting of acute renal failure and hyperkalemia
Will require left pleural effusion thoracentesis once Eliquis is clear
Bumex is currently held in setting of CHUY and hypotension
[2024-07-12] MEDS: ProAmatine 5 MG PO (09:55)
--- NOTE | 2024-07-12 10:37 | PTCARENOTE ---
UA + urine creatine and sodium obtained from Saleem catheter and send to lab. Saleem clamped at 10:37 for pending Renal US
[2024-07-12 10:49] LABS: Urine Albumin 1+ (Neg - Trace); Urine Bilirubin Negative (Negative); Urine Character Slightly Cloudy (Clear); Urine Color Yellow; Urine Glucose 1+ (Negative); Urine Ketone Trace (Negative); Urine Leukocyte 2+ (Negative); Urine Nitrite Negative (Negative); Urine Occult Blood 4+ (Negative); Urine Urobilinogen Negative (Neg - 1+)
[2024-07-12 10:59] LABS: Urine Mucus Few
[2024-07-12 11:00] LABS: Urine Bacteria Few (Negative); Urine Red Blood Cell 50-60 /HPF (0-2); Urine White Cell 26-30 /HPF (0-5)
[2024-07-12 11:14] LABS: Urine Sodium 18 mmol/L (30-90)
--- NOTE | 2024-07-12 11:31 | W.PN.CD ---
Today's Communication / Plan
-
Diuresis
Amio for rate control of flutter, likely in flutter for some time
Assess left chest after thoracentesis
Over 80 min caring for patient including reviewing extensive records
Impression / Plan
-
Dyspnea, left pleural effusion
- DDx: atypical heart failure vs primary/secondary pulmonary process
- Agree with thoracentesis for Dx and reimaging of chest to assess
- Had thoracentesis at [facility] in May 2014, analysis of fluid unknown
Dementia, significant
CAD
Chronic HFpEF
Known paroxysmal AFib and AFlutter, usually in sinus, on amio and Eliquis (2.5 bid for age/Cr)
- [id number] at least 4 (HF, age2, vascular dz)
CKD3B
COPD
Asc Ao 4.5: he is not a candidate for intervention
DNR
Subjective:
Does not offer useful history
Data:
Outside echo ([facility]) 05/21/2024 it was a technically difficult study with suboptimal images, EF 55 to 60%, 1 normal RV size with mildly decreased function, and valves were overall not well-visualized.�
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 No other obstructive CAD
Echo 05/2021: LVEF 60%. mild-mod , mild AI, mod TR, Asc Ao 4.5
Physical Exam
Vital Signs/Labs
Vital Signs
Temp Pulse Resp BP Pulse Ox
97.7 F 86 16 93/68 97
07/12/24 07:05 07/12/24 11:28 07/12/24 11:28 07/12/24 11:17 07/12/24 11:28
07/11/24 07/12/24 07/13/24
06:59 06:59 06:59
Actual Weight 84.6 kg
07/12/24 04:12
07/12/24 04:12
Magnesium 1.8 mg/dl (1.6-2.3) 07/12/24 04:12
07/11/24
15:29
Waa-O-Rzmeuguxjyh Pept 5680
LAB Results
07/11/24
15:29
Troponin I 0.014
Physical Exam
Constitutional: No acute distress
Cardiovascular: Rhythm & rate is regular, Pedal edema is absent and Systolic murmur present
Respiratory: Respiratory effort normal and Lungs clear to auscul. (No breath sounds Left 2/3 )
GI: Soft and Distention absent
Neuro/Psych: Alert and Other (confused and cannot give any useful history)
Data Reviewed
-
Date of Service: July 12, 2024
--- NOTE | 2024-07-12 11:44 | PTCARENOTE ---
Renal US done result pending . Albumin 1st bag adm . pt + MRSA placed on contact insolation Patient oriented to himself only . BP 93/58 SR 88 RR 15 POX 99% 2L . Non productive frequent cough. Lungs diminished. Saleem draining cloudy elie urine
[2024-07-12] MEDS: FLEXBUMIN 100 IV ×4 (12:04→20:07)
--- NOTE | 2024-07-12 14:21 | CM ---
Addendum entered by Hailey Xavier RN 07/12/24 15:39:
PAMELLA spoke with ANGELES Marlow at the [facility] who happens to be patient's granddaughter. Patient has been at the [facility] for two months in assisted living. Patient was brought from [place] where he has two hospitalizations and had a stay at [facility].
From the SNF, he was brought to the [facility]. Patient uses a walker, but often does not ask for assistance with toileting or ambulation. Patient has had 20 falls since the time he moved into the [facility]. Patient does have PT/OT, but he does not have
halfway at this time.
Patient's daughter Marry is his POA.
CM will continue to follow.
Original Note:
CM reviewed medical records. Patient is from [facility]. PAMELLA left message for nursing at [facility] for [place].
[2024-07-12] MEDS: PACERONE 200 MG PO (14:40)
[2024-07-12] MEDS: LEVOPHED 250 IV (14:46)
--- NOTE | 2024-07-12 14:48 | PTCARENOTE ---
Daughter at bedside . Updates given regarding pt's current medications and labs . She was concern about pt's SBP 83; And low urinal output. Daughter reports that pt's current mental status not at his baseline . At baseline pt forgetful but able to
hold small conversations . Daughter believes that pt a lot more confused. AST 227 ALT 146 Daughter states that it was a lot more higher prior. Patient was taking Amiodarone as home medication . Morning dose for Amiodarone adm
[2024-07-12] MEDS: TYLENOL 650 MG PO (23:33)
[2024-07-13] VITALS (56 sets, daily range): BP systolic 75–124; BP diastolic 38–100; BMI 26.8
[2024-07-13] MEDS: MAXIPIME 1000 MG IV ×2 (04:52→17:42)
[2024-07-13] MEDS: STERILE WATER FOR INJECTION 10 ML IV ×2 (04:52→17:42)
[2024-07-13] MEDS: LEVOPHED 250 IV ×2 (04:53→14:35)
[2024-07-13] MEDS: LOKELMA 10 GRAM PO (04:53)
--- NOTE | 2024-07-13 05:33 | PTCARENOTE ---
Received pt at change of shift. AAOx1 (to self only). Spoke to daughter and she confirms he is confused on a normal basis but not 'this confused'. Daughter wants to add pt's granddaughter Kashmir Gutierrez to list of contacts: [phone]. Levo gtt
running currently at 6 mcg/hr for SBP to remain >100. HR tachy around 115 consistently. FAMILY SERVICE CENTER DIRECTOR notified. Urine output minimal this shift - 100 ml through ivey. Lungs coarse but diminished throughout. Left arm weeping clear fluid. Multiple skin
tears on b/l arms - dressings changed d/t drainage. Pt resting in bed with call seo in reach.
[2024-07-13 05:38] LABS: % Basophils 0.2 % (0-2); % Eosinophils 0.2 % (0-6); % Immature Granulocytes 0.7 % (0-0.5); % Lymphocytes 7.6 % (20.5-51.1); % Neutrophils 85.3 % (42.2-75.2); Absolute Immature Granulocytes 0.1 10^3/uL (0-0.05); Absolute Lymphocytes 1.3 10^3/uL (1.2-3.4); Absolute Neutrophils 14.4 10^3/uL (1.4-6.5); Hematocrit 22.4 % (39.0-52.0); Hemoglobin 7.8 g/dL (13.0-18.0); Mean Corp Hgb Conc. 34.8 g/dL (33.0-37.0); Mean Corpuscular Hgb 31.3 pg (27.0-31.0); Mean Platelet Volume 11.7 fL (7.4-10.4); Nucleated Red Blood Cells % 0.1 % (-); Platelet Count 337 10^3/uL (130-400); Red Blood Cell Count 2.49 10^6/uL (4.70-6.10); Red Cell Dist. Width 15.9 % (11.5-14.5); White Blood Cell Count 16.9 10^3/uL (4.8-10.8)
[2024-07-13 05:56] LABS: ALT (SGPT) 99 U/L (0-50); AST (SGOT) 131 U/L (17-59); Albumin 3.4 g/dl (3.5-5.0); Alkaline Phosphatase 119 U/L (38-126); Blood Urea Nitrogen 50 mg/dl (9-20); Calcium 9.2 mg/dl (8.4-10.2); Carbon Dioxide 22 mmol/L (22-30); Chloride 107 mmol/L (98-107); Estimated Creatinine Clearance 20 ml/min; Glucose 112 mg/dl (70-99); Magnesium 1.9 mg/dl (1.6-2.3); Potassium 4.3 mmol/L (3.5-5.1); Sodium 142 mmol/L (135-145); Total Bilirubin 0.9 mg/dl (0.2-1.3); Total Protein 5.6 g/dl (6.3-8.2); eGFR 20.36
--- NOTE | 2024-07-13 06:37 | W.PN.UPDATE ---
Update Note
Progress Note Update
RN notified HEEL GUMMER BP 87/73 HR 114, Levophed maintained at 4 increased to 5mg/hr, admitted with pleural effusion, If HR continuos to rise and BP maintained low will try a dose of Amiodarone.
At 0630 BP 98/75 HR 102
[2024-07-13] MEDS: PULMICORT 0.5 MG INH ×2 (07:21→20:04)
[2024-07-13] MEDS: DUONEB 3 ML INH ×4 (07:21→20:04)
--- NOTE | 2024-07-13 08:35 | W.PN.CD ---
Today's Communication / Plan
-
resume Eliquis post thoracentesis, follow up echo, titrate norepi, will re-start HFpEF meds and rate control pending improvement in hypotension/CHUY
Impression / Plan
-
# Dyspnea, left pleural effusion
# Acute on chronic diastolic heart failure, suspected
- DDx: atypical heart failure vs primary/secondary pulmonary process
- cont. empiric cefepime/vancomycin
- Agree with thoracentesis for Dx and reimaging of chest to assess
- currently holding dapa and renetta 25 in setting of CHUY/hypotension/hypotension; resume when able
- holding diuresis currently in setting of hypotension and CHUY, difficult volume exam, follow up echo
# Hypotension
- acute on chronic hypotension, currently on norepi 4, cont. to titrate
- exam not suggestive of low output
# Known paroxysmal AFib and AFlutter, usually in sinus, on amio and Eliquis (2.5 bid for age/Cr)
- HHV1DS3-ABVu at least 4 (HF, age2, vascular dz)
- rate control limited by blood pressure
- rate control currently poor
- continue amiodarone 200
- holding metop 25 BID currently in setting of hypotension
# CKD3B - CHUY on CKD, renal following, favored to be pre-renal in setting of hypotension
# CAD - stable, currently holding metop, cont. statin/ezetimibe
# Dementia, significant
# COPD
# Ao 4.5: he is not a candidate for intervention
# DNR
Subjective:
Does not offer useful history
Data:
Outside echo ([facility]) 05/21/2024 it was a technically difficult study with suboptimal images, EF 55 to 60%, 1 normal RV size with mildly decreased function, and valves were overall not well-visualized.�
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 No other obstructive CAD
Echo 05/2021: LVEF 60%. mild-mod , mild AI, mod TR, Asc Ao 4.5
Physical Exam
Vital Signs/Labs
Vital Signs
Temp Pulse Resp BP Pulse Ox
36.6 C 102 14 95/75 97
07/13/24 04:34 07/13/24 07:30 07/13/24 07:30 07/13/24 07:30 07/13/24 07:30
07/12/24 07/13/24 07/14/24
06:59 06:59 06:59
Actual Weight 84.6 kg 84.6 kg
07/13/24 05:03
07/13/24 05:03
Magnesium 1.9 mg/dl (1.6-2.3) 07/13/24 05:03
07/11/24
15:29
Ypg-X-Fvgdubaeqld Pept 5680
LAB Results
07/11/24
15:29
Troponin I 0.014
Physical Exam
Constitutional: Confusion
Cardiovascular: Rhythm & rate is regular, Pedal edema is absent, Systolic murmur absent, Diastolic murmur absent and Other (JVD not appreciated but JVP not well seen)
Respiratory: Respiratory effort normal and Other (dec on left)
Data Reviewed
-
Date of Service: July 13, 2024
Medical Decision Making: Reviewed Test Results and Test Interpretation
EKG: Tracing Personally Visualized and interpreted and Report Reviewed by me
Echo: Report Reviewed by me
X-Ray/CT/US/MRI/NUC/PET: Image Personally Visualized and interpreted and Report Reviewed by me
Labs: Labs Reviewed by me
--- NOTE | 2024-07-13 08:51 | VATNOTE ---
on rounds noted left midline dressing bloody left top corner. noted skin tear 3cm X 3CM . Redressed Left midline dressing. Skin tear dressed with petrolatum dressing and optifoam. Will continue to monitor closely.
--- NOTE | 2024-07-13 09:26 | W.PN.HOSP.TC ---
Today's Communication/Plan
-
IV antibiotics. Thoracentesis. Cardio nephro eval.
Assessment / Plan
Assessment / Plan
Physical exam:
General: Acute on chronically ill
HEENT: Normocephalic, Atraumatic and Moist Mucous Membranes
Respiratory: Decreased breath sounds mostly in the left; Negative Wheezes, Rales or Rhonchi
Cardiac: Regular Rhythm and S1/S2
GI: Soft, Nontender and Nondistended
Musculoskeletal: No Clubbing, No Cyanosis and No Edema
Neuro: Awake, Alert and Oriented
Psych: Calm
A/P:
# Acute Hypoxic Respiratory Insufficiency secondary to CHF, Pleural Effusion and possible pneumonia. Blood culture positive 1 out of 2 bottles.
COVID negative
Continue supplemental oxygen, wean down from 5 to 3L NC, cont to wean as able
Cont DuoNeb ATC and PRN
Repeat blood cultures today
Updated daughter over the phone today
#Shock
Continue pressors
Antibiotics
# Left Pleural Effusion, possibly related to heart failure vs empyema
Status post thoracentesis today. Follow-up studies.
Resume Eliquis tonight
Fluid studies ordered
Broaden antibiotics to Vancomycin and Cefepime
Check blood cultures.
Check echocardiogram.
Cardiology consulted--> discussed with cardiology today.
# Hyperkalemia secondary to spironolactone/potassium supplementation
hold both
Cont to monitor K level
# Acute Kidney Injury on CKD III
Creatinine 2.7 on admission, today at 3, baseline ?1.3
Placed Saleem catheter from ED
Hold Jardiance
Renal CS--> follow-up nephrology input.
# Chronic HFpEF, possible component of acute
Difficult situation in setting of hypotension
Consult Cardiology and appreciated input
Check Echocardiogram
Monitor Is&Os and Daily Weights
# Elevated LFT, possibly related to liver congestion
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
Cont to monitor LFT
Consider Abd US if LFT remain elevated
# Paroxysmal Atrial Fibrillation
Eliquis on hold of thoracentesis
Continue amiodarone for rhythm control
Hold Metoprolol due to low BP
# Hyperlipidemia
Holding atorvastatin and Zetia due to elevated LFT
# COPD
Continue Pulmicort Neb and Duoneb QID and PRN
# Depression
Continue sertraline
# Progressive Cognitive Decline
Monitor for mood/behavior changes during hospitalization
# Alcoholic Cirrhosis w/o Ascites
Stable
DVT proph: SCDs until able to resume Eliquis
Code Status: DNR
total time spent 51 min
Anticipated Discharge: > 48 hours
Subjective/Interval History
-
Date of Service: July 13, 2024
Patient still short of breath. No chest pain.
Objective Data
-
Labs:
Laboratory Results
07/13/24
05:03
WBC 16.9 H
Hgb 7.8 L
Hct 22.4 L
Plt Count 337
Sodium 142
Potassium 4.3
Chloride 107
Carbon Dioxide 22
BUN 50 H
Creatinine 3.0 H
Glucose 112 H
Calcium 9.2
Total Bilirubin 0.9
AST 131 H
ALT 99 H
Alkaline Phosphatase 119
Vital Signs:
Vital Signs
Temp Pulse Resp BP Pulse Ox
97.8 F 102 14 95/75 97
07/13/24 04:34 07/13/24 07:30 07/13/24 07:30 07/13/24 07:30 07/13/24 07:30
I&O
07/12/24 07/13/24 07/14/24
06:59 06:59 06:59
Intake Total 80 / 80 440 / 440
Output Total 175 / 175 230 / 230
Balance -95 / -95 210 / 210
--- NOTE | 2024-07-13 11:00 | PTCARENOTE ---
Patient off unit in IR for thoracentesis. Levo drip at 8mcg.
--- NOTE | 2024-07-13 11:22 | PHA.VAN.FU ---
Vancomycin Assessment / Plan
- Assessment
Renal Function: SCR Increasing
WBC's are: Stable
In the past 24 hrs, patient has been: Afebrile
Concomitant Antimicrobials: cefepime
- Assessment - Therapeutic Drug Monitoring
Random Level: 16 - drawn ~25H after previous level of 23.3
Calculated ke: 0.0151
Calculated half life (H): 45.8
- Dosing Plan
Dosing by Level: Hold off on dosing today (SCR remains elevated and based on current PK, anticipated to maintain level > 10 for next 24H)
- Monitoring Plan
Random Level: 07/14 0600
- Follow Up
Pharmacy will continue to follow.
Vancomycin Follow UP
- -
Patient Age: 79
Patient Sex: Male
Vancomycin Day #: 3
Indication: Pulmonary/Respiratory
Requesting Provider: GALILEA Sheikh
Pertinent Antimicrobial Allergies:
NKDA
Height / Weight:
Height 5 ft 10 in
Actual Weight 84.6 kg
Pertinent Past Medical History: CKD
- Vital Signs / Lab Results
Temp Pulse Resp BP Pulse Ox
97.4 F 122 19 94/79 94
07/13/24 07:47 07/13/24 10:30 07/13/24 10:30 07/13/24 10:30 07/13/24 10:30
Lab Results - Hematology
07/11/24 07/12/24 07/13/24
15:18 04:12 05:03
WBC 14.0 H 17.8 H 16.9 H
Lab Results - Chemistry
07/11/24 07/12/24 07/13/24
15:18 04:12 05:03
BUN 44 H 44 H 50 H
Creatinine 2.7 H 2.9 H 3.0 H
Estimated Creat Clear 23 21 20
Albumin 2.9 L 3.4 L
07/11/24
16:19
Lactic Acid 1.6
Microbiology Results
07/11/24 16:18 Blood Culture - Preliminary
Blood/Venous Positive culture in progress
Gram Stain - Preliminary
07/11/24 16:48 Blood Culture - Preliminary
Blood/Venous No Growth in 24 hours- Final report to follow
07/11/24 20:58 Nasal Screen MRSA (PCR) - Final
Nose Staph aureus MRSA
07/11/24 15:18 Influenza Types A & B (DEYANIRA) - Final
Nasal Swab Negative for Influenza A & B, NAAT
Negative results must be combined with clinical observations
and patient history.
Nucleic Acid Amplification test (NAAT)performed on the
[employer] platform.
Therapeutic Drug Monitoring
Random Vancomycin 16.0 ug/ml 07/13/24 05:03
[2024-07-13 11:41] LABS: Body Fluid pH 7.47
[2024-07-13 11:48] LABS: Body Fluid Glucose 111 mg/dl; Body Fluid LDH 194 U/L; Body Fluid Protein < 2.0 g/dl; Body Fluid Triglycerides < 30 mg/dl
[2024-07-13 12:06] LABS: Body Fluid WBC 455 /CUMM
[2024-07-13] MEDS: PROTONIX 40 MG PO (12:06)
[2024-07-13] MEDS: ZOLOFT 100 MG PO (12:06)
[2024-07-13] MEDS: PACERONE 200 MG PO (12:06)
[2024-07-13] MEDS: DESENEX/MITRAZOL/ZEASORB 1 APPLIC TOPICAL ×2 (12:07→20:15)
[2024-07-13] MEDS: ProAmatine 5 MG PO ×4 (12:07→20:12)
[2024-07-13] MEDS: MUCINEX PO (12:07)
[2024-07-13] MEDS: PROSCAR 5 MG PO (12:07)
[2024-07-13] MEDS: FOLVITE 1 MG PO (12:07)
[2024-07-13] MEDS: ZYLOPRIM 100 MG PO (12:07)
[2024-07-13 12:18] LABS: Body Fluid Second Tech SS
--- NOTE | 2024-07-13 13:02 | PTCARENOTE ---
Patient back from IR. Removed 1100 mls. Band aide intact on left back. Vitals stables, last BP 109/75,111,96% 2L, 18. Patient remain on levo drip @ 8 mcg/30 mls/hr. Patient currently eating lunch.
--- NOTE | 2024-07-13 14:07 | W.PN.NEPH.PH ---
Today's Communication / Plan
-
wean pressors to keep SBP>90
IV alb
follow labs
Assessment/Plan
-
Impression:
Hypoxic respiratory failure
Hypotension
Acute kidney injury
Chronic kidney disease stage IIIb
Hyperkalemia
Left pleural effusion-s/p thoracentesis 1.1lit 07/13
Chronic HFpEF
Paroxysmal atrial fibrillation
COPD
Alcoholic cirrhosis
Cognitive decline
Transaminitis
Plan:
CHUY/CKD-possible ATN, HRS always in deferential too
I suspect acute kidney injury is hemodynamically induced given profoundly low blood pressure
UA ?UTI, Fena low 0.2. oliguric with ivey, no hydro
cont pressors to keep SBP>90, prn midodrine
provide IV albumin for hypotension in setting of hypoalbuminemia
Aldactone and SGLT2 inhibitor held in setting of acute renal failure and hyperkalemia
k is normal off LOkelma course
s/p left pleural effusion thoracentesis today
cont to hold Bumex in setting of CHUY and hypotension
h/h decreasing, check fe panel
LFTs improving
follow labs
-
-
Date of Service: July 13, 2024
CC / HPI / ROS
-
Chief Complaint:
CHUY
History of Present Illness:
cr slightly up at 3, k normal, oliguric with ivey 200cc
BP soft on pressors
no fever, s/p thoracentesis of l.1lit
Review of Systems:
no cp or sob
dry cough
no abd pain
Labs
-
Labs:
WBC 16.9 10^3/uL (4.8-10.8) H 07/13/24 05:03
RBC 2.49 10^6/uL (4.70-6.10) L 07/13/24 05:03
Hgb 7.8 g/dL (13.0-18.0) L 07/13/24 05:03
Hct 22.4 % (39.0-52.0) L 07/13/24 05:03
Plt Count 337 10^3/uL (130-400) 07/13/24 05:03
Sodium 142 mmol/L (135-145) 07/13/24 05:03
Potassium 4.3 mmol/L (3.5-5.1) 07/13/24 05:03
Chloride 107 mmol/L (98-107) 07/13/24 05:03
Carbon Dioxide 22 mmol/L (22-30) 07/13/24 05:03
BUN 50 mg/dl (9-20) H 07/13/24 05:03
Creatinine 3.0 mg/dL (0.7-1.3) H 07/13/24 05:03
eGFR 20.36 07/13/24 05:03
Glucose 112 mg/dl (70-99) H 07/13/24 05:03
Calcium 9.2 mg/dl (8.4-10.2) 07/13/24 05:03
Zre-C-Qvgbpdnfxzd Pept 5680 pg/ml 07/11/24 15:29
Albumin 3.4 g/dl (3.5-5.0) L 07/13/24 05:03
Physical Exam
-
Vital Signs:
Vital Signs
Temp Pulse Resp BP Pulse Ox
97.7 F 121 14 109/75 94
07/13/24 11:54 07/13/24 13:00 07/13/24 13:00 07/13/24 13:00 07/13/24 13:00
Cardiovascular:: Regular rate and rhythm
Lung Excursion:: Normal (decreased)
Abdomen:: Nontender and Soft
Extremity Edema:: +1: Bilateral:
Ivey Catheter: Yes
[2024-07-13] MEDS: LOKELMA PO (15:27)
[2024-07-13] MEDS: FLEXBUMIN 100 IV ×2 (15:28→21:58)
[2024-07-13] MEDS: TESSALON PERLES 200 MG PO ×2 (16:43→20:11)
--- NOTE | 2024-07-13 16:58 | CON.ID ---
Consultation
-
Date/Time Consultation Requested: July 13, 2024 1413
Date/Time Consultation Performed: July 13, 2024 1700
Requesting Provider: Dr. Hubert Jackson
Performing Provider: Dr. Azalea Renteria
Reason for Consultation: Bacteremia
Chief Complaint / Past History
Chief Complaint
Worsening cough and shortness of breath
History of Present Illness
History obtained from review medical records since patient is a very poor historian due to cognitive decline. He is an 79-year-old male with alcohol cirrhosis recently quit drinking in May of this year, COPD, atrial fibrillation, CAD, heart
failure with preserved EF, CKD who presented to hospital 07/11 with worsening cough and shortness of breath. He has been having a cough and difficulty breathing for approximately 2 weeks prior to presentation. He was placed on doxycycline 6 days
prior to admission. However he continued to have worsening shortness of breath and patient found to be hypoxic with O2 sat in the 80s. In ED Afebrile. White count 14. Chest x-ray showed left pleural effusion. He was started on vancomycin and
cefepime. Today he underwent left thoracentesis of 1.1 L serosanguineous fluid. Gram stain no organism. Culture pending. Admission blood culture 1 out of 2 sets with GPC in clusters. Pt very drowsy - unable to provide further information.
Past History
Additional Past Medical History:
Alcohol cirrhosis
COPD
Paroxysmal atrial fibrillation
CAD status post stent
Heart failure with preserved EF
Hypertension
orthostatic hypotension
CKD3B
BPH
Gout
History of subdural hematoma
Depression
Cognitive decline
Appendectomy
Bilateral total knee replacements
Allergy History:
No Known Allergies Allergy (Unverified 05/09/21 17:00)
Medications Reviewed: Yes
Current Antibiotics:
Vancomycin day 3
Cefepime day 3
Social History
Tobacco: Former Smoker
Alcohol: Former (Quit in 05/2024)
Drug: None
Family History
Family History: Not Pertinent
Review of Systems
Review of Systems
Unable to obtain due to dementia.
Vital Signs
Temp Pulse Resp BP Pulse Ox
97.7 F 92 18 94/58 97
07/13/24 15:55 07/13/24 16:12 07/13/24 16:12 07/13/24 15:35 07/13/24 16:12
Physical Exam
Physical Exam
Constitutional: Acutely Ill
Eyes: No Conjunctival Hemorrhage and Sclera Anicteric
Cardiovascular: S1/S2 and Other (Tachycardic)
Pulmonary: Other (Decreased breath sound left base)
Gastrointestinal: Soft, Non Tender, Non Distended and Normal Bowel Sounds
Genito-Urinary: Saleem
Extremities: Edema (1+ bilaterally)
Neurological: Other (Drowsy, opens eyes to voice.)
Lab / Diagnostic Study Results
07/13/24 05:03
07/13/24 05:03
Abs Immat Gran (auto) 0.1 10^3/uL (0-0.05) H 07/13/24 05:03
Absolute Neuts (auto) 14.4 10^3/uL (1.4-6.5) H 07/13/24 05:03
Absolute Lymphs (auto) 1.3 10^3/uL (1.2-3.4) 07/13/24 05:03
Absolute Monos (auto) 1.0 10^3/uL (0.1-0.6) H 07/13/24 05:03
Absolute Basos (auto) 0.0 10^3/uL (0-0.2) 07/13/24 05:03
Immature Gran % 0.7 % (0-0.5) H 07/13/24 05:03
Neutrophils % 85.3 % (42.2-75.2) H 07/13/24 05:03
Lymphocytes % 7.6 % (20.5-51.1) L 07/13/24 05:03
Monocytes % 6.0 % (1.7-9.3) 07/13/24 05:03
Eosinophils % 0.2 % (0-6) 07/13/24 05:03
Basophils % 0.2 % (0-2) 07/13/24 05:03
Lactic Acid 1.6 mmol/L (0.7-2.0) 07/11/24 16:19
Urine WBC 26-30 /HPF (0-5) A 07/12/24 10:37
Ur Squamous Epith Cells 3-5 /LPF (Few) 07/12/24 10:37
Microbiology Results
Micro:
07/11/24 16:48 Blood Culture - Preliminary
Blood/Venous No Growth in 48 hours- Final report to follow
07/13/24 11:07 Body Fluid Culture - Pending
Pleural Fluid Gram Stain - Preliminary
07/11/24 16:18 Blood Culture - Preliminary
Blood/Venous Positive culture in progress
Gram Stain - Preliminary
07/11/24 20:58 Nasal Screen MRSA (PCR) - Final
Nose Staph aureus MRSA
07/11/24 15:18 Influenza Types A & B (DEYANIRA) - Final
Nasal Swab Negative for Influenza A & B, NAAT
Negative results must be combined with clinical observations
and patient history.
Nucleic Acid Amplification test (NAAT)performed on the
[employer] platform.
07/13/24 CXR: . No pneumothorax following left thoracentesis.Improved left pleural effusion. Residual left pleural fluid and/or left lower lobe airspace disease may be present. Hazy opacity projected over the right midlung zone, new compared to prior
chest x-ray. This may represent subsegmental atelectasis or pneumonia, please correlate for symptoms in this region.
07/11/24 CXR: Moderate left pleural effusion, increasing from outside examinations of May 2024. Adjacent parenchymal opacity within the left lower lung, most likely atelectasis.
Assessment / Plan
# GPC cluster bacteremia 1 of 2 sets.
- Probable CoNS, contaminant.
# Left pleural effusion - parapneumonic effusion vs heart failure
- Pleural fluid exudative 68% LDH, cx pending.
- Can continue cefepime/vancomycin d3 for now.
# Leukocytosis
- Follow for now.
# MRSA colonized
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
Alcohol cirrhosis
COPD
Paroxysmal atrial fibrillation
CAD status post stent
Heart failure with preserved EF
Hypertension
orthostatic hypotension
CKD3B
BPH
Gout
History of subdural hematoma
Depression
Cognitive decline
Appendectomy
Bilateral total knee replacements
[2024-07-13] MEDS: FLUSH (NSS) 1 FLUSH IV (17:42)
--- NOTE | 2024-07-13 18:30 | PTCARENOTE ---
Order obtained by hospitalists for PICC line. Levo drip decreased to 6 mcg/hr.
[2024-07-13] MEDS: MUCINEX 600 MG PO (20:11)
[2024-07-13] MEDS: NSS 250 IV (20:13)
[2024-07-14] VITALS (57 sets, daily range): BP systolic 80–115; BP diastolic 58–88; PULSE 111–116; O2SAT 93–95; BMI 27.2
--- NOTE | 2024-07-14 00:24 | PTCARENOTE ---
varies between sinus and afib- 7 mcg levo to maintain bp- ax1-2- forgetful confused at times- 2 liters to maintain sats
[2024-07-14] MEDS: LEVOPHED 250 IV ×2 (00:28→11:58)
[2024-07-14 05:10] LABS: % Basophils 0.2 % (0-2); % Eosinophils 1.5 % (0-6); % Immature Granulocytes 0.6 % (0-0.5); % Monocytes 6.4 % (1.7-9.3); % Neutrophils 83.3 % (42.2-75.2); Absolute Eosinophils 0.2 10^3/uL (0-0.7); Absolute Immature Granulocytes 0.1 10^3/uL (0-0.05); Absolute Monocytes 0.8 10^3/uL (0.1-0.6); Absolute Neutrophils 10.1 10^3/uL (1.4-6.5); Hematocrit 21.4 % (39.0-52.0); Hemoglobin 7.3 g/dL (13.0-18.0); Mean Corp Hgb Conc. 34.1 g/dL (33.0-37.0); Mean Corpuscular Hgb 30.5 pg (27.0-31.0); Mean Corpuscular Volume 89.5 fL (80.0-94.0); Mean Platelet Volume 11.7 fL (7.4-10.4); Nucleated Red Blood Cells % 0.2 % (-); Platelet Count 265 10^3/uL (130-400); Red Blood Cell Count 2.39 10^6/uL (4.70-6.10); Red Cell Dist. Width 15.9 % (11.5-14.5); White Blood Cell Count 12.2 10^3/uL (4.8-10.8)
[2024-07-14] MEDS: STERILE WATER FOR INJECTION 10 ML IV ×2 (05:12→17:04)
[2024-07-14] MEDS: MAXIPIME 1000 MG IV ×2 (05:12→17:04)
[2024-07-14] MEDS: FLEXBUMIN 100 IV ×3 (05:14→21:42)
[2024-07-14 05:19] LABS: Vancomycin Random 13.4 ug/ml
[2024-07-14 05:25] LABS: ALT (SGPT) 77 U/L (0-50); AST (SGOT) 91 U/L (17-59); Albumin 3.3 g/dl (3.5-5.0); Alkaline Phosphatase 99 U/L (38-126); Blood Urea Nitrogen 52 mg/dl (9-20); Carbon Dioxide 23 mmol/L (22-30); Chloride 105 mmol/L (98-107); Direct Bilirubin 0.6 mg/dl (0.0-0.4); Estimated Creatinine Clearance 21 ml/min; Glucose 111 mg/dl (70-99); Iron 28 ug/dl (49-181); Potassium 4.1 mmol/L (3.5-5.1); Sodium 140 mmol/L (135-145); Total Protein 5.5 g/dl (6.3-8.2)
[2024-07-14 05:34] LABS: Percent Saturation 22 % (20-50); Total Iron Binding Capacity 124 ug/dl (261-462)
[2024-07-14] MEDS: DUONEB 3 ML INH ×4 (07:21→19:25)
[2024-07-14] MEDS: PULMICORT 0.5 MG INH ×2 (07:21→19:25)
--- NOTE | 2024-07-14 08:13 | W.PN.CD ---
Today's Communication / Plan
-
cont. to wean pressors, O2 / picture not suggestive of low output heart failure / will consider restarting diuresis, rate control, and GDMT as condition improves
Impression / Plan
-
# Dyspnea, left pleural effusion s/p thoracentesis
# Acute on chronic diastolic heart failure, suspected
- cont. empiric cefepime/vancomycin
- CXR post-thoracentesis with minimal residual, no significant pulmonary edema of air space opacities
- currently holding dapa and renetta 25 in setting of CHUY/hypotension/hypotension; resume when able
- holding diuresis currently in setting of hypotension and CHUY, difficult volume exam but not overtly volume overloaded by exam, echo suggests R>L volume overload (low e/e', IVC not collapsible)
# Hypotension
- acute on chronic hypotension, currently on norepi 5, cont. to titrate; consider titration to MAP rather than systolic
- exam not suggestive of low output, warm with strong pulses
- echo not suggestive of low output (normal EF, LVOT SVI normal)
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
# Known paroxysmal AFib and AFlutter, usually in sinus, on amio and Eliquis (2.5 bid for age/Cr)
- [id number] at least 4 (HF, age2, vascular dz)
- rate control currently poor but limited by blood pressure
- continue amiodarone 200
- holding metop 25 BID currently in setting of hypotension
# CKD3B - CHUY on CKD, renal following, favored to be pre-renal in setting of hypotension, Cr hopefully cresting (2.9 from 3.0)
# CAD - stable, currently holding metop, cont. statin/ezetimibe
# Dementia, significant
# COPD
# Ao 4.5: he is not a candidate for intervention
# DNR
Subjective:
sleeping, difficult to arouse, unchanged from yesterday
Data:
Outside echo ([facility]) 05/21/2024 it was a technically difficult study with suboptimal images, EF 55 to 60%, 1 normal RV size with mildly decreased function, and valves were overall not well-visualized.�
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 No other obstructive CAD
Echo 05/2021: LVEF 60%. mild-mod , mild AI, mod TR, Asc Ao 4.5
TTE 07/13/2024 - EF 50-55, reduced RV function, mild TR, PASP 51, RAP 15
Physical Exam
Vital Signs/Labs
Vital Signs
Temp Pulse Resp BP Pulse Ox
36.4 C 110 18 108/88 97
07/14/24 07:27 07/14/24 07:23 07/14/24 07:23 07/14/24 06:30 07/14/24 07:23
07/13/24 07/14/24 07/15/24
06:59 06:59 06:59
Actual Weight 84.6 kg 86 kg
07/14/24 04:29
07/14/24 04:29
Magnesium 1.9 mg/dl (1.6-2.3) 07/13/24 05:03
07/11/24
15:29
Cqy-B-Viijwzmfeht Pept 5680
LAB Results
07/11/24
15:29
Troponin I 0.014
Physical Exam
Cardiovascular: Pedal edema is absent, Systolic murmur absent, Diastolic murmur absent and Other (JVP not well seen)
Respiratory: Labored respirations
Data Reviewed
-
Date of Service: July 14, 2024
Medical Decision Making: Reviewed Test Results and Test Interpretation
Echo: Report Reviewed by me
X-Ray/CT/US/MRI/NUC/PET: Image Personally Visualized and interpreted and Report Reviewed by me
Labs: Labs Reviewed by me
[2024-07-14] MEDS: PACERONE 200 MG PO (09:01)
[2024-07-14] MEDS: ProAmatine 5 MG PO (09:01)
--- NOTE | 2024-07-14 09:02 | W.PN.HOSP.TC ---
Addendum entered and electronically signed by Hubert Jackson MD 07/14/24 14:03:
Shock, unknown type
Original Note:
Today's Communication/Plan
-
IV antibiotics. Midodrine.
Assessment / Plan
Assessment / Plan
Physical exam:
General: Acute on chronically ill
HEENT: Normocephalic, Atraumatic and Moist Mucous Membranes
Respiratory: Decreased breath sounds mostly in the left; Negative Wheezes, Rales or Rhonchi
Cardiac: Regular Rhythm and S1/S2
GI: Soft, Nontender and Nondistended
Musculoskeletal: No Clubbing, No Cyanosis and No Edema
Neuro: Awake, Alert and Oriented
Psych: Calm
A/P:
# Acute Hypoxic Respiratory Insufficiency secondary to CHF, Pleural Effusion and possible pneumonia. Blood culture positive 1 out of 2 bottles.
COVID negative
Continue supplemental oxygen, wean down from 5 to 3L NC, cont to wean as able
Cont DuoNeb ATC and PRN
Repeat blood cultures today
Updated daughter over the phone yesterday
ID consulted
Discussed with nephrology today
#Shock
Continue pressors but will wean it off as able
Antibiotics
# Left Pleural Effusion, possibly related to heart failure vs empyema
Status post thoracentesis today. Follow-up studies.
Resume Eliquis tonight
Fluid studies ordered
Broaden antibiotics to Vancomycin and Cefepime
Check blood cultures.
Check echocardiogram.
Cardiology consulted--> discussed with cardiology today.
# Hyperkalemia secondary to spironolactone/potassium supplementation
hold both
Cont to monitor K level
# Acute Kidney Injury on CKD III
Creatinine 2.7 on admission, today at 3, baseline ?1.3
Placed Saleem catheter from ED
Hold Jardiance
Renal CS--> follow-up nephrology input.
# Chronic HFpEF, possible component of acute
Difficult situation in setting of hypotension
Consult Cardiology and appreciated input
Check Echocardiogram
Monitor Is&Os and Daily Weights
# Elevated LFT, possibly related to liver congestion
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
Cont to monitor LFT
Consider Abd US if LFT remain elevated
# Paroxysmal Atrial Fibrillation
Eliquis on hold of thoracentesis
Continue amiodarone for rhythm control
Hold Metoprolol due to low BP
# Hyperlipidemia
Holding atorvastatin and Zetia due to elevated LFT
# COPD
Continue Pulmicort Neb and Duoneb QID and PRN
# Depression
Continue sertraline
# Progressive Cognitive Decline
Monitor for mood/behavior changes during hospitalization
# Alcoholic Cirrhosis w/o Ascites
Stable
DVT proph: SCDs until able to resume Eliquis
Code Status: DNR
total time spent 51 min
Anticipated Discharge: > 48 hours
Subjective/Interval History
-
Date of Service: July 14, 2024
Patient feels about the same overall. Has some dry cough
Objective Data
-
Labs:
Laboratory Results
07/14/24
04:29
WBC 12.2 H
Hgb 7.3 L
Hct 21.4 L
Plt Count 265 D
Sodium 140
Potassium 4.1
Chloride 105
Carbon Dioxide 23
BUN 52 H
Creatinine 2.9 H
Glucose 111 H
Calcium 9.0
Total Bilirubin 1.0
AST 91 H
ALT 77 H
Alkaline Phosphatase 99
Vital Signs:
Vital Signs
Temp Pulse Resp BP Pulse Ox
97.6 F 110 18 108/88 97
07/14/24 07:27 07/14/24 07:23 07/14/24 07:23 07/14/24 06:30 07/14/24 07:23
I&O
07/13/24 07/14/24 07/15/24
06:59 06:59 06:59
Intake Total 440 / 440 1655 / 1655
Output Total 230 / 230 610 / 610
Balance 210 / 210 1045 / 1045
--- NOTE | 2024-07-14 09:38 | PHA.VAN.FU ---
Vancomycin Assessment / Plan
- Assessment
Renal Function: Stable
WBC's are: Trending Down
In the past 24 hrs, patient has been: Afebrile
Concomitant Antimicrobials: cefepime
- Assessment - Therapeutic Drug Monitoring
Random Level: 13.4 - drawn ~23.5H after previous level of 16
Calculated ke: 0.0076
Calculated half life (H): 91.6 (increased from 45.8 yesterday)
- Dosing Plan
Dosing by Level: Hold off on dosing today (patient anticipated to maintain level > 10 for next 24H based on current half-life)
- Monitoring Plan
Random Level: 07/15 0600
- Follow Up
Pharmacy will continue to follow.
Vancomycin Follow UP
- -
Patient Age: 79
Patient Sex: Male
Vancomycin Day #: 4
Indication: Pulmonary/Respiratory
Requesting Provider: [facility] / Dr. Renteria
Pertinent Antimicrobial Allergies:
NKDA
Height / Weight:
Height 5 ft 10 in
Actual Weight 86 kg
Pertinent Past Medical History: CKD
- Vital Signs / Lab Results
Temp Pulse Resp BP Pulse Ox
97.6 F 110 18 108/88 97
07/14/24 07:27 07/14/24 07:23 07/14/24 07:23 07/14/24 06:30 07/14/24 07:23
Lab Results - Hematology
07/11/24 07/12/24 07/13/24
15:18 04:12 05:03
WBC 14.0 H 17.8 H 16.9 H
07/14/24
04:29
WBC 12.2 H
Lab Results - Chemistry
07/11/24 07/12/24 07/13/24
15:18 04:12 05:03
BUN 44 H 44 H 50 H
Creatinine 2.7 H 2.9 H 3.0 H
Estimated Creat Clear 23 21 20
Albumin 2.9 L 3.4 L
07/14/24
04:29
BUN 52 H
Creatinine 2.9 H
Estimated Creat Clear 21
Albumin 3.3 L
07/11/24
16:19
Lactic Acid 1.6
Microbiology Results
07/13/24 11:07 Body Fluid Culture - Preliminary
Pleural Fluid No Growth After 18-24 Hours
Gram Stain - Preliminary
07/11/24 16:18 Blood Culture - Preliminary
Blood/Venous Coagulase neg. staphylococcus
Additional testing on request
Gram Stain - Preliminary
07/11/24 16:48 Blood Culture - Preliminary
Blood/Venous No Growth in 48 hours- Final report to follow
07/11/24 20:58 Nasal Screen MRSA (PCR) - Final
Nose Staph aureus MRSA
Therapeutic Drug Monitoring
Random Vancomycin 13.4 ug/ml 07/14/24 04:29
--- NOTE | 2024-07-14 09:59 | W.PN.ID1 ---
Date of Service
Date of Service: July 14, 2024
Today's Communication
Continue cefepime/Vanco
Assessment / Plan
# Left pleural effusion - parapneumonic effusion vs diastolic heart failure
# MRSA screen +
- Pleural fluid exudative 68% LDH, cx negative to date.
- Can continue cefepime/vancomycin d4 for now pending final plerual fluid cx.
# Leukocytosis- trending down
- Follow for now.
# CoNS bacteremia 1 of 2 sets = contaminant
# CHUY on CKD
- Adjust abx dosing as needed.
# Conditions [employer]
Alcohol cirrhosis
COPD
Paroxysmal atrial fibrillation
CAD status post stent
Heart failure with preserved EF
Hypertension
orthostatic hypotension
CKD3B
BPH
Gout
History of subdural hematoma
Depression
Cognitive decline
Appendectomy
Bilateral total knee replacements
Chief Complaint
-: Pneumonia and Bacteremia
Subjective / Review of Systems
Daughter at bedside.
She reports cough started after pneumonia was treated as outpatient.
Cough slightly improved here.
Vital Signs / Physical Exam
Vital Signs
Vital Signs
Temp Pulse Resp BP Pulse Ox
97.6 F 110 18 108/88 97
07/14/24 07:27 07/14/24 07:23 07/14/24 07:23 07/14/24 06:30 07/14/24 07:23
Physical Exam
Constitutional: No Acute Distress
Cardiovascular: Other (tachycardic)
Pulmonary: Other (decreased BS left base)
Gastrointestinal: Soft, Non Tender and Non Distended
Genito-Urinary: Negative CVA Tenderness
Extremities: Edema (1+ BLE)
Neurological: Awake and Alert
Objective Data
Lab Data
Lab Results
07/14/24 04:29
07/14/24 04:29
Estimated Creat Clear 21 ml/min 07/14/24 04:29
Lactic Acid 1.6 mmol/L (0.7-2.0) 07/11/24 16:19
Total Bilirubin 1.0 mg/dl (0.2-1.3) 07/14/24 04:29
AST 91 U/L (17-59) H 07/14/24 04:29
ALT 77 U/L (0-50) H 07/14/24 04:29
Alkaline Phosphatase 99 U/L (38-126) 07/14/24 04:29
Most recent labs reviewed.
Micro Results:
07/13/24 11:07 Body Fluid Culture - Preliminary
Pleural Fluid No Growth After 18-24 Hours
Gram Stain - Preliminary
07/11/24 16:18 Blood Culture - Preliminary
Blood/Venous Coagulase neg. staphylococcus
Additional testing on request
Gram Stain - Preliminary
07/13/24 17:11 Urine Culture - Pending
Urine
07/13/24 17:05 Blood Culture - Pending
Blood/Venous
07/11/24 16:48 Blood Culture - Preliminary
Blood/Venous No Growth in 48 hours- Final report to follow
07/11/24 20:58 Nasal Screen MRSA (PCR) - Final
Nose Staph aureus MRSA
07/11/24 15:18 Influenza Types A & B (DEYANIRA) - Final
Nasal Swab Negative for Influenza A & B, NAAT
Negative results must be combined with clinical observations
and patient history.
Nucleic Acid Amplification test (NAAT)performed on the
[employer] platform.
07/13/24 CXR: . No pneumothorax following left thoracentesis.Improved left pleural effusion. Residual left pleural fluid and/or left lower lobe airspace disease may be present. Hazy opacity projected over the right midlung zone, new compared to prior
chest x-ray. This may represent subsegmental atelectasis or pneumonia, please correlate for symptoms in this region.
07/11/24 CXR: Moderate left pleural effusion, increasing from outside examinations of May 2024. Adjacent parenchymal opacity within the left lower lung, most likely atelectasis.
--- NOTE | 2024-07-14 10:13 | W.PN.NEPH.PH ---
Today's Communication / Plan
-
see plan
Assessment/Plan
-
Impression:
Hypoxic respiratory failure
Hypotension
Acute kidney injury
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
Hyperkalemia
Left pleural effusion-s/p thoracentesis 1.1lit 07/13
Chronic HFpEF
Paroxysmal atrial fibrillation
COPD
Alcoholic cirrhosis
Cognitive decline
Transaminitis
Plan:
CHUY/CKD-possible ATN, HRS always in deferential too , cr relatively stable 2.9 and improving UOP
I suspect acute kidney injury is hemodynamically induced given profoundly low blood pressure
UA ?UTI, pending cx, Fena low 0.2. oliguric with ivey, no hydro on US-keep ivey
cont pressors to keep SBP>90,increase midodrine to 10mg TID
will provide IV albumin for hypotension another day
Aldactone and SGLT2 inhibitor held in setting of acute renal failure
s/p left pleural effusion thoracentesis 07/13
cont to hold Bumex in setting of CHUY and hypotension, wt is up likely need to resume soon
h/h decreasing to 7.3, adequate fe stores, pend transfusion and also r/o any bleeding
Long conversation with daughter at bedside today
She notices rapid decline in health status in last 4-5months, was admitted in OR for 2weeks in April cr peak was ~3.4, improved to 2.6 at d/c and repeat labs since then has been at 2 range
He was admitted to [place] in May for 1week. She notices him being chronic alcoholic and likely is the cause of cognitive decline.
We reviewed poor prognosis specially with CHUY and liver disease. She understands and wants no CASING WORKER even if indicated and I respect her decision since I do not think he will tolerate CASING WORKER with low BPs
Ultimately she will plan comfort care for her father in future, cont DNR this time
d/w nursing
-
-
Date of Service: July 14, 2024
CC / HPI / ROS
-
Chief Complaint:
CHUY
History of Present Illness:
cr stable at 2.9, k normal, oliguric with ivey -improving UOP
BP soft on pressors, s/p 500cc NS bolus on 07/13
no fever, s/p thoracentesis of l.1lit on 07/13
wt is up today
on 2lit of L2
k normal, hb low at 7.3, fe sat 22%
Review of Systems:
no cp or sob at rest
dry cough
no abd pain
Labs
-
Labs:
WBC 12.2 10^3/uL (4.8-10.8) H 07/14/24 04:29
RBC 2.39 10^6/uL (4.70-6.10) L 07/14/24 04:29
Hgb 7.3 g/dL (13.0-18.0) L 07/14/24 04:29
Hct 21.4 % (39.0-52.0) L 07/14/24 04:29
Plt Count 265 10^3/uL (130-400) D 07/14/24 04:29
Sodium 140 mmol/L (135-145) 07/14/24 04:29
Potassium 4.1 mmol/L (3.5-5.1) 07/14/24 04:29
Chloride 105 mmol/L (98-107) 07/14/24 04:29
Carbon Dioxide 23 mmol/L (22-30) 07/14/24 04:29
BUN 52 mg/dl (9-20) H 07/14/24 04:29
Creatinine 2.9 mg/dL (0.7-1.3) H 07/14/24 04:29
eGFR 21.20 07/14/24 04:29
Glucose 111 mg/dl (70-99) H 07/14/24 04:29
Calcium 9.0 mg/dl (8.4-10.2) 07/14/24 04:29
Jxw-B-Dxzmisuvfjy Pept 5680 pg/ml 07/11/24 15:29
Albumin 3.3 g/dl (3.5-5.0) L 07/14/24 04:29
Physical Exam
-
Vital Signs:
Vital Signs
Temp Pulse Resp BP Pulse Ox
97.6 F 110 18 108/88 97
07/14/24 07:27 07/14/24 07:23 07/14/24 07:23 07/14/24 06:30 07/14/24 07:23
Cardiovascular:: Regular rate and rhythm (tachy)
Lung Excursion:: Normal (decreased)
Abdomen:: Nontender and Soft
Extremity Edema:: +1: Bilateral:
Ivey Catheter: Yes
--- NOTE | 2024-07-14 11:19 | PN.CDI ---
CDI
- -
CDI:
Physician Documentation Request
Admit Date: 07/11/24 19:17
Dear Doctor Renetta,
Patient admitted with respiratory insufficiency.
07/13 Hospitalist PN: 'Acute Hypoxic Respiratory Insufficiency secondary to CHF, Pleural Effusion and possible pneumonia...Shock, Continue pressors, Antibiotics...Left Pleural Effusion, possibly related to heart failure vs empyema...Broaden
antibiotics to Vancomycin and Cefepime...Chronic HFpEF, possible component of acute'
Please clarify which of the following is the most likely type of shock:
Septic shock
Cardiogenic shock
Hypovolemic shock - indicate if due to surgery, trauma or other etiology
Shock, unknown type
Other
Use of terms such as suspected, likely, concern for, or probable (associated with a specific diagnosis that is being evaluated, monitored, or treated as if it exists) are acceptable and can be coded in the inpatient setting, when documented at the
time of discharge.
Thank you,
Hiwot Rutledge RN, BSN
CDI Specialist
Available via [facility] text
Please use your independent medical judgment in providing your response.
[2024-07-14] MEDS: TESSALON PERLES 200 MG PO (11:39)
[2024-07-14] MEDS: PROSCAR 5 MG PO (11:39)
[2024-07-14] MEDS: PROTONIX 40 MG PO (11:39)
[2024-07-14] MEDS: ZOLOFT 100 MG PO (11:39)
[2024-07-14] MEDS: ZYLOPRIM 100 MG PO (11:39)
[2024-07-14] MEDS: FOLVITE 1 MG PO (11:39)
[2024-07-14] MEDS: DESENEX/MITRAZOL/ZEASORB 1 APPLIC TOPICAL ×2 (11:40→19:32)
[2024-07-14] MEDS: MUCINEX 600 MG PO ×2 (11:44→19:32)
[2024-07-14] MEDS: ProAmatine 10 MG PO ×2 (12:00→17:04)
--- NOTE | 2024-07-14 15:16 | PTCARENOTE ---
Began levophed taper, SBP has been >92 x4 hours. Of note, BP documented as 80/58 was with PT while moving from supine to sitting position. Remains in afib on telemetry, HR low 100s. Oriented to self and place, disoriented to time and situation. Has
tolerated sitting in chair x4 hours so far this afternoon. Chair alarm in place and monitoring.
--- NOTE | 2024-07-14 16:51 | CM ---
Patient from [facility] with Hx dementia and fall with Dx Acute Hypoxic Respiratory Insufficiency secondary to CHF, Pleural Effusion and possible pneumonia s/p thoracentesis, CHUY. O2 2L. Receiving Levophed gtt, IV Abx. PICC line. PT & OT;
requires assist of 2, recommend skilled rehab. Per nurse assessment; forgetful.
Phone call to [facility]; left message requesting callback for d/c planning.
Phone call to daughter Marry; left message requesting callback for d/c planning.
Plan follow up with [facility] if patient permitted to return with his current mobility.
Plan follow up with patient/daughter re; SNF for rehab vs return to [facility].
[2024-07-14] MEDS: ELIQUIS 2.5 MG PO (19:32)
--- NOTE | 2024-07-14 20:00 | PTCARENOTE ---
Resumed care of pt sitting in chair AAOx2-Forgetful and confused at times. HR in the low 100's in Afib on the monitor, tachycardic with activity. POX 98% on 2LO2 NC. Pt with frequent most non productive cough. Lungs dec with scattered ex wheezes
t/o. CONNER/Tachypneic. + bowel, round abd. Saleem cath in place draining elie colored urine. Brown PVD legs, +1 B/L LE edema. Left forearm skin tear with foam in place, LUE skin tear dressed. Left dual picc in place infusing Levophed @2mcg/min to keep
SBP >90. Pt denies any complaints at this time. Daughter at bedside. Will continue to monitor.
--- NOTE | 2024-07-14 23:00 | PTCARENOTE ---
Pt assisted from chair to bed x2 with walker. Pt reports feeling slightly lightheaded when standing but states it resolved after a minute. Pt settled in bed per comfort. Knee high seq applied. Pt turned on side. levophed infusing as ordered. bed
alarm in place. Will continue to monitor.
[2024-07-15] VITALS (50 sets, daily range): BP systolic 79–116; BP diastolic 60–89; BMI 27.0
[2024-07-15 04:44] LABS: % Basophils 0.2 % (0-2); % Eosinophils 1.8 % (0-6); % Immature Granulocytes 0.6 % (0-0.5); % Lymphocytes 7.9 % (20.5-51.1); % Neutrophils 82.5 % (42.2-75.2); Absolute Eosinophils 0.2 10^3/uL (0-0.7); Absolute Immature Granulocytes 0.1 10^3/uL (0-0.05); Absolute Lymphocytes 0.7 10^3/uL (1.2-3.4); Absolute Monocytes 0.6 10^3/uL (0.1-0.6); Absolute Neutrophils 6.9 10^3/uL (1.4-6.5); Hematocrit 19.4 % (39.0-52.0); Hemoglobin 6.7 g/dL (13.0-18.0); Mean Corp Hgb Conc. 34.5 g/dL (33.0-37.0); Mean Corpuscular Hgb 30.6 pg (27.0-31.0); Mean Corpuscular Volume 88.6 fL (80.0-94.0); Mean Platelet Volume 11.9 fL (7.4-10.4); Nucleated Red Blood Cells % 0 % (-); Platelet Count 192 10^3/uL (130-400); Red Blood Cell Count 2.19 10^6/uL (4.70-6.10); Red Cell Dist. Width 15.9 % (11.5-14.5); White Blood Cell Count 8.4 10^3/uL (4.8-10.8)
[2024-07-15 04:55] LABS: ALT (SGPT) 57 U/L (0-50); AST (SGOT) 65 U/L (17-59); Albumin 3.3 g/dl (3.5-5.0); Alkaline Phosphatase 108 U/L (38-126); Blood Urea Nitrogen 53 mg/dl (9-20); Carbon Dioxide 22 mmol/L (22-30); Chloride 106 mmol/L (98-107); Direct Bilirubin 0.6 mg/dl (0.0-0.4); Estimated Creatinine Clearance 21 ml/min; Glucose 103 mg/dl (70-99); Potassium 3.7 mmol/L (3.5-5.1); Sodium 140 mmol/L (135-145); Total Bilirubin 0.9 mg/dl (0.2-1.3); Total Protein 5.3 g/dl (6.3-8.2)
[2024-07-15 05:14] LABS: Vancomycin Random 11.5 ug/ml
[2024-07-15] MEDS: FLEXBUMIN 100 IV (05:18)
[2024-07-15] MEDS: STERILE WATER FOR INJECTION 10 ML IV (05:18)
[2024-07-15] MEDS: MAXIPIME 1000 MG IV (05:18)
--- NOTE | 2024-07-15 05:56 | PTCARENOTE ---
Pt slept well overnight, AM lab work reviewed with Agustin BERMUDEZ. Orders obtained. Voice message left with daughter in attempt to obtain blood consent. Continue to await call back. Levophed restarted to keep SBP >90. Pt denies any complaints. Will
continue to monitor.
[2024-07-15] MEDS: PULMICORT 0.5 MG INH (07:46)
[2024-07-15] MEDS: DUONEB 3 ML INH ×3 (07:46→14:54)
--- NOTE | 2024-07-15 08:39 | PHA.VAN.FU ---
Vancomycin Assessment / Plan
- Assessment
Renal Function: Stable
WBC's are: WNL
In the past 24 hrs, patient has been: Afebrile
Concomitant Antimicrobials: cefepime
- Assessment - Therapeutic Drug Monitoring
Random Level: 11.5 - drawn ~24H after previous level of 13.4
Calculated ke: 0.0064
Calculated half life (H): 107.6
- Dosing Plan
Dosing by Level: Re-dose today (Vanc 1000mg)
Based on current half-life and that patient maintained level for ~4 days post 2g load, anticipate single dose will maintain therapeutic levels for 4-5 days if SCR remains stable
- Monitoring Plan
No level(s) ordered at this time: expected to maintain level for several days with half-life
Monitoring Comments: consider level in next few days
- Follow Up
Pharmacy will continue to follow.
Vancomycin Follow UP
- -
Patient Age: 79
Patient Sex: Male
Vancomycin Day #: 5
Indication: Pulmonary/Respiratory
Requesting Provider: [facility] / Dr. Renteria
Pertinent Antimicrobial Allergies:
NKDA
Height / Weight:
Height 5 ft 10 in
Actual Weight 85.4 kg
Pertinent Past Medical History: CKD
- Vital Signs / Lab Results
Temp Pulse Resp BP Pulse Ox
97.1 F 104 16 101/74 97
07/15/24 04:23 07/15/24 07:49 07/15/24 07:49 07/15/24 06:00 07/15/24 07:49
Lab Results - Hematology
07/13/24 07/14/24 07/15/24
05:03 04:29 04:13
WBC 16.9 H 12.2 H 8.4
Lab Results - Chemistry
07/13/24 07/14/24 07/15/24
05:03 04:29 04:13
BUN 50 H 52 H 53 H
Creatinine 3.0 H 2.9 H 2.9 H
Estimated Creat Clear 20 21 21
Albumin 3.4 L 3.3 L 3.3 L
Microbiology Results
07/13/24 17:11 Urine Culture - Final
Urine NO GROWTH
07/13/24 17:05 Blood Culture - Preliminary
Blood/Venous No Growth in 24 hours- Final report to follow
07/11/24 16:48 Blood Culture - Preliminary
Blood/Venous No Growth in 72 hours- Final report to follow
07/13/24 11:07 Body Fluid Culture - Preliminary
Pleural Fluid No Growth After 18-24 Hours
Gram Stain - Preliminary
07/11/24 16:18 Blood Culture - Preliminary
Blood/Venous Coagulase neg. staphylococcus
Additional testing on request
Gram Stain - Preliminary
Therapeutic Drug Monitoring
Random Vancomycin 11.5 ug/ml 07/15/24 04:13
[2024-07-15] MEDS: DESENEX/MITRAZOL/ZEASORB 1 APPLIC TOPICAL ×2 (08:41→19:29)
[2024-07-15] MEDS: FOLVITE 1 MG PO (08:42)
[2024-07-15] MEDS: ZOLOFT 100 MG PO (08:42)
[2024-07-15] MEDS: PROTONIX 40 MG PO (08:42)
[2024-07-15] MEDS: ZYLOPRIM 100 MG PO (08:42)
[2024-07-15] MEDS: PROSCAR 5 MG PO (08:42)
[2024-07-15] MEDS: PACERONE 200 MG PO (08:42)
[2024-07-15] MEDS: MUCINEX 600 MG PO ×2 (08:42→19:29)
[2024-07-15] MEDS: ProAmatine 10 MG PO ×3 (08:42→17:03)
--- NOTE | 2024-07-15 09:01 | W.PN.HOSP.TC ---
Today's Communication/Plan
-
Blood transfusion.
Assessment / Plan
Assessment / Plan
Physical exam:
General: Acute on chronically ill
HEENT: Normocephalic, Atraumatic and Moist Mucous Membranes
Respiratory: Decreased breath sounds mostly in the left; Negative Wheezes, Rales or Rhonchi
Cardiac: Regular Rhythm and S1/S2
GI: Soft, Nontender and Nondistended
Musculoskeletal: No Clubbing, No Cyanosis and No Edema
Neuro: Awake, Alert and Oriented
Psych: Calm
A/P:
Acute hypoxic respiratory failure-continue oxygen supplementation and wean as needed. Discussed with cardiology at bedside and with family today. Discussed with nephrology as well. Family leaning towards comfort care over the next couple of days
which is reasonable given multiple comorbidities-hospice consulted today.
Acute on chronic diastolic CHF-IV Lasix, diuretics if hemodynamics allow, discussed with cardiology today. Reviewed latest echocardiogram EF 50 to 55%, mild aortic stenosis, moderate pulm regurgitation, estimated pulmonary pressure 51.
Shock, unknown type, possibly cardiogenic-continue pressors as needed
Anemia-doubt acute blood loss anemia or acute GI bleed at the moment, likely anemia of chronic disease-discussed about blood transfusion and consented by daughter today.
Left pleural effusion-status post left thoracentesis
Leukocytosis/pneumonia-initial concerns for pneumonia and has been treated with cefepime and vancomycin for 5 days. Pleural fluid cultures no growth so discontinue antibiotics today. ID consult appreciated and they signed off.
Acute kidney injury on CKD-albumin, IV fluids, midodrine. Nephrology explained he is not a candidate for hemodialysis. Continue to monitor renal function.
Elevated LFTs-passive venous congestion
Paroxysmal a flutter/X-ipk-fusxedjd rhythm control with amiodarone, off anticoagulation and since leaning towards comfort will keep it off for now.
CAD-stable
Dementia-monitor behavior and mental status
COPD-monitor respiratory status
Alcoholic Cirrhosis w/o Ascites-monitor LFTs and volume
DVT prophylaxis-SCDs
CODE STATUS-DNR
total time spent 51 min
Anticipated Discharge: > 48 hours
Subjective/Interval History
-
Date of Service: July 15, 2024
Patient weak and hypotensive requiring pressors. Not much of shortness of breath or chest pain today.
Objective Data
-
Labs:
Laboratory Results
07/15/24 07/15/24
04:13 07:50
WBC 8.4
Hgb 6.7 L* Pending
Hct 19.4 L* Pending
Plt Count 192 D
Sodium 140
Potassium 3.7
Chloride 106
Carbon Dioxide 22
BUN 53 H
Creatinine 2.9 H
Glucose 103 H
Calcium 9.0
Total Bilirubin 0.9
AST 65 H
ALT 57 H
Alkaline Phosphatase 108
Vital Signs:
Vital Signs
Temp Pulse Resp BP Pulse Ox
97.8 F 112 16 100/72 97
07/15/24 07:44 07/15/24 08:42 07/15/24 07:49 07/15/24 08:42 07/15/24 07:49
I&O
07/14/24 07/15/24 07/16/24
06:59 06:59 06:59
Intake Total 1655 / 1655 300 / 300
Output Total 610 / 610 475 / 475
Balance 1045 / 1045 -175 / -175
[2024-07-15 09:56] LABS: Hematocrit 20.1 % (39.0-52.0)
--- NOTE | 2024-07-15 09:58 | W.PN.CD ---
Today's Communication / Plan
-
Goals of care discussion
-discussed with patient, daughter, hospitalist team, and nephrology
- we will not escalate care
-hospice consult
-remain off of eliquis as hospice is discussed given downtrending Hgb
Impression / Plan
-
# Goals of care discussion
-discussed with patient, daughter, hospitalist team, and nephrology
- we will not escalate care
-hospice consult
-remain off of eliquis as hospice is discussed given downtrending Hgb
# Dyspnea, left pleural effusion s/p thoracentesis
# Acute on chronic diastolic heart failure, suspected
# Hypotension
# Known paroxysmal AFib and AFlutter,
# CKD3B - CHUY on CKD, renal following, favored to be pre-renal in setting of hypotension, Cr hopefully cresting (2.9 from 3.0)
# CAD - stable, currently holding metop, cont. statin/ezetimibe
# Dementia, significant
# COPD
# Ao 4.5: he is not a candidate for intervention
# DNR
Subjective:
Patient offers no cardiac complaints
Data:
Outside echo ([facility]) 05/21/2024 it was a technically difficult study with suboptimal images, EF 55 to 60%, 1 normal RV size with mildly decreased function, and valves were overall not well-visualized.�
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 No other obstructive CAD
Echo 05/2021: LVEF 60%. mild-mod , mild AI, mod TR, Asc Ao 4.5
TTE 07/13/2024 - EF 50-55, reduced RV function, mild TR, PASP 51, RAP 15
Physical Exam
Vital Signs/Labs
Vital Signs
Temp Pulse Resp BP Pulse Ox
97.8 F 112 16 100/72 97
07/15/24 07:44 07/15/24 08:42 07/15/24 07:49 07/15/24 08:42 07/15/24 07:49
07/14/24 07/15/24 07/16/24
06:59 06:59 06:59
Actual Weight 86 kg 85.4 kg
07/15/24 09:00
07/15/24 04:13
Magnesium 1.9 mg/dl (1.6-2.3) 07/13/24 05:03
07/11/24
15:29
Pqg-Q-Rloxlatmfsz Pept 5680
Physical Exam
Constitutional: No acute distress and Comfortable
Cardiovascular: Rhythm/rate is irregular
Respiratory: Respiratory effort normal and Lungs clear to auscul.
GI: Soft
Neuro/Psych: Alert
Data Reviewed
-
Date of Service: July 15, 2024
EKG: Other (Tele: A fib 100-110s)
Labs: Labs Reviewed by me
--- NOTE | 2024-07-15 10:50 | W.PN.NEPH.PH ---
Today's Communication / Plan
-
lasix
Assessment/Plan
-
Impression:
Hypoxic respiratory failure
Hypotension
Acute kidney injury
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
Hyperkalemia
Left pleural effusion-s/p thoracentesis 1.1lit 07/13
Chronic HFpEF
Paroxysmal atrial fibrillation
COPD
Alcoholic cirrhosis
Cognitive decline
Transaminitis
Plan:
for transfusion
lasix with PRBC
follow BMP
daughter says that family is coming saturday
likely transition to comfort end of week
-
-
Date of Service: July 15, 2024
CC / HPI / ROS
-
Chief Complaint:
CHUY
History of Present Illness:
cr stable at 2.9, k normal, oliguric with ivey
off pressors, BP low stable
no fever, s/p thoracentesis on 07/13
on 2lit of L2
hgb low at 7.0
on abx for sepsis
Review of Systems:
no cp or sob at rest
no abd pain
Labs
-
Labs:
WBC 8.4 10^3/uL (4.8-10.8) 07/15/24 04:13
RBC 2.19 10^6/uL (4.70-6.10) L 07/15/24 04:13
Hgb 7.0 g/dL (13.0-18.0) L 07/15/24 09:00
Hct 20.1 % (39.0-52.0) L* 07/15/24 09:00
Plt Count 192 10^3/uL (130-400) D 07/15/24 04:13
Sodium 140 mmol/L (135-145) 07/15/24 04:13
Potassium 3.7 mmol/L (3.5-5.1) 07/15/24 04:13
Chloride 106 mmol/L (98-107) 07/15/24 04:13
Carbon Dioxide 22 mmol/L (22-30) 07/15/24 04:13
BUN 53 mg/dl (9-20) H 07/15/24 04:13
Creatinine 2.9 mg/dL (0.7-1.3) H 07/15/24 04:13
eGFR 21.20 07/15/24 04:13
Glucose 103 mg/dl (70-99) H 07/15/24 04:13
Calcium 9.0 mg/dl (8.4-10.2) 07/15/24 04:13
Phl-C-Jspruplaguy Pept 5680 pg/ml 07/11/24 15:29
Albumin 3.3 g/dl (3.5-5.0) L 07/15/24 04:13
Physical Exam
-
Vital Signs:
Vital Signs
Temp Pulse Resp BP Pulse Ox
97.8 F 112 16 100/72 97
07/15/24 07:44 07/15/24 08:42 07/15/24 07:49 07/15/24 08:42 07/15/24 07:49
Cardiovascular:: Regular rate and rhythm
Respiratory:: Bilateral: Coarse
Lung Excursion:: Normal
Abdomen:: Nontender and Soft
Bowel Sounds:: Normal
Extremity Edema:: None: Bilateral:
--- NOTE | 2024-07-15 11:13 | CM ---
Patient from [facility] with Hx dementia and fall with Dx Acute Hypoxic Respiratory Insufficiency secondary to CHF, Pleural Effusion and possible pneumonia s/p thoracentesis, CHUY. O2 2L. Receiving Levophed gtt, IV Abx, IV Lasix. PICC line. PT &
OT; requires assist of 2, recommend skilled rehab. Per nurse assessment; forgetful.
CM Consult: Hospice
Spoke with patient's daughter Marry;
she is already familar with hospice philosophy and benefits as her father had hospice.
Marry relayed that she works as a Pastoral Pharmacovigilance Scientist for her [employer].
She spoke with MDs who plan on continuing treatment until the 4 grandchildren can arrive on Saturday.
She would like to speak with Hospice nurse - agree to make request.
Marry spoke with MD about prognosis but is unsure if patient will be able to return to [facility].
Spoke with [facility] about referral.
Plan follow up after seen by Hospice.
--- NOTE | 2024-07-15 11:23 | PTCARENOTE ---
1 unit PRBCs ordered and hung, no s/s transfusion rxn at this time. PT remains pleasant and cooperative, sl forgetful at times. Plan discussed with daughter and attending MD at bedside. Will no longer escalate care, hospice consulted, will consider
transition to comfort care at end of week after family is all able to come visit.
[2024-07-15] MEDS: TESSALON PERLES 200 MG PO (11:40)
[2024-07-15] MEDS: VANCOCIN 200 IV (11:46)
--- NOTE | 2024-07-15 12:47 | HOSPNOTE ---
Spoke with daughter and explained hospice and the philosophy. There is more family arriving from out of state on Saturday. The daughter will make decisions about patient going back to the [facility] or if the patient meets criteria to remain here
inpatient hospice. The daughter states that if patient does need any medications prior to Saturday to manage symptoms she is in agreement. Will continue to follow. If the patient goes back to the [facility] I told daughter we are not the preferred
provider.
--- NOTE | 2024-07-15 13:39 | W.PN.ID1 ---
Date of Service
Date of Service: July 15, 2024
Today's Communication
DC abx's.
ID will sign off.
Assessment / Plan
# Left pleural effusion - suspect diastolic heart failure over parapneumonic effusion
- CXR without opacity
- Pleural fluid cx negative.
- Discontinue cefepime/vancomycin (d5)
# Leukocytosis- resolved
# CoNS bacteremia 1 of 2 sets = contaminant
# MRSA screen +
# CHUY on CKD
ID will sign off.
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
Alcohol cirrhosis
COPD
Paroxysmal atrial fibrillation
CAD status post stent
Heart failure with preserved EF
Hypertension
orthostatic hypotension
CKD3B
BPH
Gout
History of subdural hematoma
Depression
Cognitive decline
Appendectomy
Bilateral total knee replacements
Chief Complaint
-: Pneumonia and Bacteremia
Subjective / Review of Systems
Feels a little better.
Vital Signs / Physical Exam
Vital Signs
Vital Signs
Temp Pulse Resp BP Pulse Ox
97.7 F 102 15 112/76 99
07/15/24 11:32 07/15/24 13:00 07/15/24 13:00 07/15/24 13:00 07/15/24 13:00
Physical Exam
Constitutional: No Acute Distress
Cardiovascular: Irregular Rate
Pulmonary: Clear (anteriorly)
Gastrointestinal: Soft, Non Tender and Non Distended
Genito-Urinary: Negative CVA Tenderness
Extremities: Edema
Objective Data
Lab Data
Lab Results
07/15/24 09:00
07/15/24 04:13
Estimated Creat Clear 21 ml/min 07/15/24 04:13
Lactic Acid 1.6 mmol/L (0.7-2.0) 07/11/24 16:19
Total Bilirubin 0.9 mg/dl (0.2-1.3) 07/15/24 04:13
AST 65 U/L (17-59) H 07/15/24 04:13
ALT 57 U/L (0-50) H 07/15/24 04:13
Alkaline Phosphatase 108 U/L (38-126) 07/15/24 04:13
Most recent labs reviewed.
Micro Results:
07/13/24 11:07 Body Fluid Culture - Preliminary
Pleural Fluid No Growth After 48 Hours
Gram Stain - Preliminary
07/13/24 17:11 Urine Culture - Final
Urine NO GROWTH
07/13/24 17:05 Blood Culture - Preliminary
Blood/Venous No Growth in 24 hours- Final report to follow
07/11/24 16:48 Blood Culture - Preliminary
Blood/Venous No Growth in 72 hours- Final report to follow
07/11/24 16:18 Blood Culture - Preliminary
Blood/Venous Coagulase neg. staphylococcus
Additional testing on request
Gram Stain - Preliminary
07/11/24 20:58 Nasal Screen MRSA (PCR) - Final
Nose Staph aureus MRSA
07/11/24 15:18 Influenza Types A & B (DEYANIRA) - Final
Nasal Swab Negative for Influenza A & B, NAAT
Negative results must be combined with clinical observations
and patient history.
Nucleic Acid Amplification test (NAAT)performed on the
h[employer] NOW platform.
07/13/24 CXR: . No pneumothorax following left thoracentesis.Improved left pleural effusion. Residual left pleural fluid and/or left lower lobe airspace disease may be present. Hazy opacity projected over the right midlung zone, new compared to prior
chest x-ray. This may represent subsegmental atelectasis or pneumonia, please correlate for symptoms in this region.
07/11/24 CXR: Moderate left pleural effusion, increasing from outside examinations of May 2024. Adjacent parenchymal opacity within the left lower lung, most likely atelectasis.
--- NOTE | 2024-07-15 15:44 | PTCARENOTE ---
Attempted to wean oxygen to room air but pt desatted to 78%, 2L nasal cannula resumed.
[2024-07-15] MEDS: LASIX 40 MG IV (17:03)
--- NOTE | 2024-07-15 18:15 | PTCARENOTE ---
Levophed off at 16:30, will cont to monitor. Pt remains AOx3, forgetful but pleasant. 2nd BM of the day on bedpan, pericare provided and linens changed.
[2024-07-16] VITALS (19 sets, daily range): BP systolic 89–123; BP diastolic 60–93; PULSE 105–111; O2SAT 92–94; BMI 26.8
--- NOTE | 2024-07-16 00:36 | PTCARENOTE ---
Pt pleasant, cooperative, but forgetful. Pt removed O2 and SaO2 monitor. Upon replacement of puls ox sticker, sat 87% on RA. This RN replaced 1L O2 with improvement to 95%. Pt remains in afib with HR 100-120. Tachypneic at times with frequent
non-productive cough. Pt denies pain/discomfort at this time. Bed alarm in place for patient safety.
[2024-07-16 05:21] LABS: Hematocrit 23.4 % (39.0-52.0); Hemoglobin 8.1 g/dL (13.0-18.0); Mean Corp Hgb Conc. 34.6 g/dL (33.0-37.0); Mean Corpuscular Hgb 30.6 pg (27.0-31.0); Mean Corpuscular Volume 88.3 fL (80.0-94.0); Mean Platelet Volume 11.9 fL (7.4-10.4); Platelet Count 199 10^3/uL (130-400); Red Blood Cell Count 2.65 10^6/uL (4.70-6.10); Red Cell Dist. Width 16.4 % (11.5-14.5); White Blood Cell Count 10.4 10^3/uL (4.8-10.8)
[2024-07-16 05:37] LABS: INR 1.66; PT 19.7 Sec (11.4-14.6)
[2024-07-16 05:38] LABS: ALT (SGPT) 55 U/L (0-50); AST (SGOT) 65 U/L (17-59); Albumin 3.4 g/dl (3.5-5.0); Alkaline Phosphatase 108 U/L (38-126); Blood Urea Nitrogen 53 mg/dl (9-20); Calcium 9.1 mg/dl (8.4-10.2); Carbon Dioxide 23 mmol/L (22-30); Chloride 106 mmol/L (98-107); Direct Bilirubin 0.7 mg/dl (0.0-0.4); Estimated Creatinine Clearance 20 ml/min; Glucose 88 mg/dl (70-99); Potassium 3.8 mmol/L (3.5-5.1); Sodium 140 mmol/L (135-145); Total Bilirubin 1.3 mg/dl (0.2-1.3); Total Protein 5.4 g/dl (6.3-8.2); eGFR 20.36
[2024-07-16 06:16] LABS: Glucose - Point of Care 111 mg/dl (70-99)
[2024-07-16] MEDS: PROTONIX 40 MG PO (08:17)
[2024-07-16] MEDS: DESENEX/MITRAZOL/ZEASORB 1 APPLIC TOPICAL ×2 (08:17→21:32)
[2024-07-16] MEDS: ProAmatine 10 MG PO ×3 (08:17→17:47)
[2024-07-16] MEDS: MUCINEX 600 MG PO ×2 (08:18→21:33)
[2024-07-16] MEDS: PROSCAR 5 MG PO (08:18)
[2024-07-16] MEDS: FOLVITE 1 MG PO (08:18)
[2024-07-16] MEDS: ZOLOFT 100 MG PO (08:18)
[2024-07-16] MEDS: TESSALON PERLES 200 MG PO (08:18)
[2024-07-16] MEDS: PACERONE 200 MG PO (08:18)
[2024-07-16] MEDS: ZYLOPRIM 100 MG PO (08:18)
--- NOTE | 2024-07-16 08:55 | W.PN.HOSP.TC ---
Today's Communication/Plan
-
Continue current management.
Assessment / Plan
Assessment / Plan
Physical exam:
General: Acute on chronically ill
HEENT: Normocephalic, Atraumatic and Moist Mucous Membranes
Respiratory: Decreased breath sounds mostly in the left; Negative Wheezes, Rales or Rhonchi
Cardiac: Regular Rhythm and S1/S2
GI: Soft, Nontender and Nondistended
Musculoskeletal: No Clubbing, No Cyanosis and No Edema
Neuro: Awake, Alert and Oriented
Psych: Calm
A/P:
Acute hypoxic respiratory failure-continue oxygen supplementation and wean as able. Discussed with cardiology at bedside and with family yesterday. Discussed with nephrology as well. Family leaning towards comfort care over the next couple of days
which is reasonable given multiple comorbidities-hospice consulted yesterday. Updated daughter at bedside today.
Acute on chronic diastolic CHF-IV Lasix yesterday, diuretics if hemodynamics allow, discussed with cardiology. Reviewed latest echocardiogram EF 50 to 55%, mild aortic stenosis, moderate pulm regurgitation, estimated pulmonary pressure 51.
Shock, unknown type, possibly cardiogenic-off pressors, continue midodrine.
Anemia-doubt acute blood loss anemia or acute GI bleed at the moment, likely anemia of chronic disease-discussed about blood transfusion and consented by daughter yesterday, hemoglobin 8.1 today after transfusion.
Left pleural effusion-status post left thoracentesis.
Leukocytosis/pneumonia-initial concerns for pneumonia and has been treated with cefepime and vancomycin for 5 days. Pleural fluid cultures no growth so discontinue antibiotics today. ID consult appreciated and they signed off.
Acute kidney injury on CKD-albumin, IV fluids, midodrine. Nephrology explained he is not a candidate for hemodialysis. Continue to monitor renal function. Creatinine 3 today
Elevated LFTs-passive venous congestion, will monitor every so often and as outpatient if needed.
Paroxysmal a flutter/A-cql-svejtjqm rhythm control with amiodarone, off anticoagulation and since leaning towards comfort will keep it off for now.
CAD-stable
Dementia-monitor behavior and mental status
COPD-monitor respiratory status
Alcoholic Cirrhosis w/o Ascites-monitor volume and mental status
DVT prophylaxis-SCDs
CODE STATUS-DNR
Anticipated Discharge: 24 - 48 hours
Subjective/Interval History
-
Date of Service: July 16, 2024
Patient feels better overall. He has some coughing spell and some difficulty swallowing this morning. Afebrile
Objective Data
-
Labs:
Laboratory Results
07/16/24
05:07
WBC 10.4
Hgb 8.1 L
Hct 23.4 L
Plt Count 199
PT 19.7 H
INR 1.66
Sodium 140
Potassium 3.8
Chloride 106
Carbon Dioxide 23
BUN 53 H
Creatinine 3.0 H
Glucose 88
Calcium 9.1
Total Bilirubin 1.3
AST 65 H
ALT 55 H
Alkaline Phosphatase 108
Vital Signs:
Vital Signs
Temp Pulse Resp BP Pulse Ox
97.9 F 107 15 106/81 96
07/16/24 05:27 07/16/24 08:18 07/16/24 06:00 07/16/24 08:18 07/16/24 06:00
I&O
07/15/24 07/16/24 07/17/24
06:59 06:59 06:59
Intake Total 300 / 300 450 / 450
Output Total 475 / 475 750 / 750
Balance -175 / -175 -300 / -300
--- NOTE | 2024-07-16 11:23 | CM ---
Addendum entered by Veronica Delgado RN 07/16/24 12:17:
Spoke with daughter Marry; she wants to move forward with d/c plans without waiting for family meeting tomorrow. She selected [facility] that [facility] uses. Provided update to daughter that [facility] has nurse available for tomorrow, and
that we are waiting for [facility] to confirm that they can accept her father back tomorrow. She agrees to ambulance transport. Daughter will come in to sign the IMM.
Spoke with Rodolfo, Director [facility] (ph [phone], fax [phone]); they are able to accept the referral placed in [facility]. He confirms that he has an available nurse tomorrow.
Phone calls x3 to ARMANI Issa [facility]; left messages requesting callback for d/c tomorrow with [facility].
Phone call to nurse Marlow; left message requesting callback.
Out of Hospital DNR form on chart for MD signature.
Plan speak to [facility] about d/c tomorrow with hospice. Will need fax # for d/c paperwork.
Plan [facility] tomorrow with [facility] by ambulance.
Original Note:
Patient from [facility] with Hx dementia and fall with Dx Acute Hypoxic Respiratory Failure, CHF, Pleural Effusion, possible pneumonia s/p thoracentesis, anemia, CHUY, PAF/A fib. O2 1L. PICC line. PT & OT; recommend skilled rehab. Per nurse
assessment; forgetful.
Message from [facility]; patient doesn't currently meet criteria for GIP. Discussed that hospice nurse would meet with family tomorrow once all family arrives, and discuss with his daughter Marry about return to [facility].
Plan follow up after Hospice meets with family tomorrow.
--- NOTE | 2024-07-16 11:32 | HOSPNOTE ---
Addendum entered by Marita Graves RN 07/16/24 12:49:
Notified by CM that patient is going to return to the [facility] on hospice with their preferred, will sign off.
Original Note:
Hospice is following. Patients grandchildren are arriving tomorrow. Patients daughter wishes to continue treatment until they arrive. At this time of evaluation, patient does not qualify for inpatient hospice. Will follow and reevaluate tomorrow and
also speak to the daughter tomorrow with an update and devise a plan. If patient continues to not meet inpatient criteria, will review patient going back to the [facility] with their preferred hospice. CM updated.
--- NOTE | 2024-07-16 11:50 | TRANSFER ---
Report given to ANGELES Cr on 3W. transported on 1L O2 on tele monitor.
--- NOTE | 2024-07-16 12:03 | W.PN.NEPH.PH ---
Today's Communication / Plan
-
follow BMP
Assessment/Plan
-
Impression:
Hypoxic respiratory failure
Hypotension
Acute kidney injury
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
Hyperkalemia
Left pleural effusion-s/p thoracentesis 1.1lit 07/13
Chronic HFpEF
Paroxysmal atrial fibrillation
COPD
Alcoholic cirrhosis
Cognitive decline
Transaminitis
Plan:
follow hgb
follow BMP
family is coming saturday
likely transition to comfort end of week
-
-
Date of Service: July 16, 2024
CC / HPI / ROS
-
Chief Complaint:
CHUY
History of Present Illness:
cr stable at 3.0
k normal
oliguric with ivey
off pressors, BP low stable
no fever, s/p thoracentesis on 07/13
hgb low
on abx for sepsis
Review of Systems:
no cp or sob at rest
no abd pain
Labs
-
Labs:
WBC 10.4 10^3/uL (4.8-10.8) 07/16/24 05:07
RBC 2.65 10^6/uL (4.70-6.10) L 07/16/24 05:07
Hgb 8.1 g/dL (13.0-18.0) L 07/16/24 05:07
Hct 23.4 % (39.0-52.0) L 07/16/24 05:07
Plt Count 199 10^3/uL (130-400) 07/16/24 05:07
Sodium 140 mmol/L (135-145) 07/16/24 05:07
Potassium 3.8 mmol/L (3.5-5.1) 07/16/24 05:07
Chloride 106 mmol/L (98-107) 07/16/24 05:07
Carbon Dioxide 23 mmol/L (22-30) 07/16/24 05:07
BUN 53 mg/dl (9-20) H 07/16/24 05:07
Creatinine 3.0 mg/dL (0.7-1.3) H 07/16/24 05:07
eGFR 20.36 07/16/24 05:07
Glucose 88 mg/dl (70-99) 07/16/24 05:07
Calcium 9.1 mg/dl (8.4-10.2) 07/16/24 05:07
Zdd-G-Cbnhyrpvcvj Pept 5680 pg/ml 07/11/24 15:29
Albumin 3.4 g/dl (3.5-5.0) L 07/16/24 05:07
Physical Exam
-
Vital Signs:
Vital Signs
Temp Pulse Resp BP Pulse Ox
97.9 F 120 16 100/69 98
07/16/24 07:23 07/16/24 10:15 07/16/24 09:06 07/16/24 10:15 07/16/24 10:23
Cardiovascular:: Regular rate and rhythm
Respiratory:: Bilateral: Coarse
Lung Excursion:: Normal
Abdomen:: Nontender and Soft
Bowel Sounds:: Normal
Extremity Edema:: None: Bilateral:
--- NOTE | 2024-07-16 12:39 | PTOTSP ---
Speech Language Pathology Assessment:
Initial ST assessment completed at beside. Patient demonstrated functional oropharyngeal swallow. Cough observed x1 with initial thin trial via tsp with no overt s/s aspiration on remaining trials including additional tsp sips, thins via cup, or
across all solids trials. Patient without respiratory distress across all trials assessed. Patient currently presents with risk of aspiration including dependence for feeding/oral care, multiple comorbidities, with recent PNA.
Recommend:
1) Continue regular solid, thin liquid diet
2) Aspiration precautions and supervision/assist with meals
3) Strategies: Upright positioning, feed only when alert/awake, small/single bites and sips, oral care after meals
4) Medication: Whole in puree (crush as needed)
Discussed recommendations with RN. ST to continue to follow to ensure diet tolerance and need for further objective assessment pending hospitalization and plan of care. Per chart, patient/family considering comfort care/hospice.
[2024-07-16 16:31] LABS: Glucose - Point of Care 120 mg/dl (70-99)
[2024-07-17 03:31] VITALS: BP 118/80
[2024-07-17 04:32] LABS: % Basophils 0.5 % (0-2); % Eosinophils 4.9 % (0-6); % Immature Granulocytes 0.5 % (0-0.5); % Lymphocytes 7.2 % (20.5-51.1); % Monocytes 10.8 % (1.7-9.3); % Neutrophils 76.1 % (42.2-75.2); Absolute Basophils 0.1 10^3/uL (0-0.2); Absolute Eosinophils 0.5 10^3/uL (0-0.7); Absolute Immature Granulocytes 0.1 10^3/uL (0-0.05); Absolute Lymphocytes 0.7 10^3/uL (1.2-3.4); Absolute Neutrophils 7.2 10^3/uL (1.4-6.5); Hematocrit 23.7 % (39.0-52.0); Hemoglobin 8.5 g/dL (13.0-18.0); Mean Corp Hgb Conc. 35.9 g/dL (33.0-37.0); Mean Corpuscular Hgb 31.7 pg (27.0-31.0); Mean Corpuscular Volume 88.4 fL (80.0-94.0); Mean Platelet Volume 11.7 fL (7.4-10.4); Nucleated Red Blood Cells % 0.2 % (-); Platelet Count 190 10^3/uL (130-400); Red Blood Cell Count 2.68 10^6/uL (4.70-6.10); Red Cell Dist. Width 16.3 % (11.5-14.5); White Blood Cell Count 9.5 10^3/uL (4.8-10.8)
[2024-07-17 04:58] LABS: Blood Urea Nitrogen 58 mg/dl (9-20); Calcium 9.2 mg/dl (8.4-10.2); Carbon Dioxide 21 mmol/L (22-30); Chloride 107 mmol/L (98-107); Estimated Creatinine Clearance 21 ml/min; Glucose 90 mg/dl (70-99); Potassium 3.7 mmol/L (3.5-5.1); Sodium 142 mmol/L (135-145)
[2024-07-17 07:00] VITALS: BP 126/83
[2024-07-17] MEDS: ZYLOPRIM 100 MG PO (08:42)
[2024-07-17] MEDS: FOLVITE 1 MG PO (08:42)
[2024-07-17] MEDS: ProAmatine 10 MG PO (08:43)
[2024-07-17] MEDS: PROTONIX 40 MG PO (08:44)
[2024-07-17] MEDS: ZOLOFT 100 MG PO (08:44)
[2024-07-17] MEDS: PACERONE 200 MG PO (08:44)
[2024-07-17] MEDS: DESENEX/MITRAZOL/ZEASORB 1 APPLIC TOPICAL (08:44)
[2024-07-17] MEDS: PROSCAR 5 MG PO (08:44)
[2024-07-17] MEDS: MUCINEX 600 MG PO (08:44)
--- NOTE | 2024-07-17 09:42 | W.PN.HOSP.TC ---
Today's Communication/Plan
-
Discharge planning today to home hospice.
Assessment / Plan
Assessment / Plan
Physical exam:
General: Acute on chronically ill
HEENT: Normocephalic, Atraumatic and Moist Mucous Membranes
Respiratory: Clear to auscultation; Negative Wheezes, Rales or Rhonchi
Cardiac: Regular Rhythm and S1/S2
GI: Soft, Nontender and Nondistended
Musculoskeletal: No Clubbing, No Cyanosis and No Edema
Neuro: Awake, Alert and Disoriented
Psych: Calm
A/P:
Acute hypoxic respiratory failure-continue oxygen supplementation and wean as able. Discussed with cardiology at bedside and with family yesterday. Discussed with nephrology as well. Family has decided on home hospice. He will be discharged today.
Acute on chronic diastolic CHF-IV Lasix yesterday, diuretics as needed for comfort down the road. Reviewed latest echocardiogram EF 50 to 55%, mild aortic stenosis, moderate pulm regurgitation, estimated pulmonary pressure 51.
Shock, unknown type, possibly cardiogenic-off pressors, continue midodrine as inpatient.
Anemia-doubt acute blood loss anemia or acute GI bleed at the moment, likely anemia of chronic disease-discussed about blood transfusion and consented by daughter yesterday, hemoglobin 8.5 after transfusion.
Left pleural effusion-status post left thoracentesis.
Leukocytosis/pneumonia-initial concerns for pneumonia and has been treated with cefepime and vancomycin for 5 days. Pleural fluid cultures no growth so discontinue antibiotics today. ID consult appreciated and they signed off.
Acute kidney injury on CKD-albumin, IV fluids, midodrine. Nephrology explained he is not a candidate for hemodialysis. Continue to monitor renal function. Creatinine 2.9 today
Elevated LFTs-passive venous congestion
Paroxysmal a flutter/H-ylo-emuacjgl rhythm control with amiodarone, off anticoagulation and since leaning towards comfort will keep it off for now.
CAD-stable
Dementia-monitor behavior and mental status
COPD-monitor respiratory status
Alcoholic Cirrhosis w/o Ascites-monitor volume and mental status
DVT prophylaxis-SCDs
CODE STATUS-DNR
Anticipated Discharge: Today
Subjective/Interval History
-
Date of Service: July 17, 2024
No new complaints.
Objective Data
-
Labs:
Laboratory Results
07/17/24
04:13
WBC 9.5
Hgb 8.5 L
Hct 23.7 L
Plt Count 190
Sodium 142
Potassium 3.7
Chloride 107
Carbon Dioxide 21 L
BUN 58 H
Creatinine 2.9 H
Glucose 90
Calcium 9.2
Vital Signs:
Vital Signs
Temp Pulse Resp BP Pulse Ox
97.9 F 97 17 126/83 95
07/17/24 07:00 07/17/24 07:00 07/17/24 07:00 07/17/24 07:00 07/17/24 08:30
I&O
07/16/24 07/17/24 07/18/24
06:59 06:59 06:59
Intake Total 450 / 450 240 / 240
Output Total 750 / 750 150 / 150
Balance -300 / -300 90 / 90
--- NOTE | 2024-07-17 09:45 | W.DCSUMMARY ---
Discharge Summary
Discharge Data
Date of Admission: 07/11/24
Date of Discharge: 07/17/24
-
Pending Results: No
Hospital Course
Patient 79 years old male with history of CAD, CKD, COPD, dementia, presented to the hospital with hypotension dyspnea and peripheral edema associated with worsening renal function. Cardiology and nephrology were consulted. Patient was started on
pressors. He was given IV albumin and diuretics were held and gentle hydration at some point given. Later on diuretics were given sparingly. Echocardiogram showed ejection fraction of 50 to 55% and mild to moderate aortic stenosis, mild tricuspid
regurgitation, moderate elevated pulmonary arterial pressure. Patient also was treated with antibiotics and ID was consulted. Patient received broad-spectrum antibiotics for 5 days. There was concern for parapneumonic effusion versus heart
failure related pleural effusion. He had a thoracentesis done on the left side. Pleural fluid cultures came back negative. There was 1 blood culture positive that was felt to be contaminant. He had some anemia and received 1 unit of blood and
hemoglobin remained stable afterwards. Nephrology had discussions with family that he was not a candidate for hemodialysis and seems that he was heading that direction. We had family discussions given his overall poor prognosis and they decided in
favor of comfort measures and hospice care. His anticoagulation diuretics and blood pressure medications were discontinued since he is enrolling in hospice. Most of his medications were held or discontinued. The rest of his medications will be
reevaluated as outpatient with hospice staff to determine if really necessary. Patient is going to be discharged to home hospice today.
Discharge duration: 35 minutes
Discharge Plan
-
Patient Disposition: Home with Hospice
Discharge Diagnosis/Procedures: Acute hypoxic respiratory failure. Acute on chronic diastolic congestive heart failure. Shock suspected cardiogenic. Anemia. Left pleural effusion status post thoracentesis. Possible pneumonia. Acute kidney
injury on chronic kidney disease. Elevated liver function test. Paroxysmal atrial fibrillation. Dementia. Alcoholic cirrhosis. Coronary artery disease. Chronic obstructive pulmonary disease.
Diet: Regular
Activity: As tolerated
Referrals:
Vikash De Souza MD [Family Provider] - in less than 1 week
Prescriptions:
Continued
atorvastatin 80 MG tablet
80 mg PO DAILY
amiodarone [Pacerone] 200 MG tablet
200 mg PO DAILY
sertraline 100 MG tablet
100 mg PO DAILY
pantoprazole 40 MG tablet,delayed release (DR/EC)
40 mg PO DAILY
folic acid 1 MG tablet
1 mg PO DAILY
finasteride 5 MG tablet
5 mg PO DAILY
multivitamin with folic acid [Tab-A-Mone] 1 TABLET tablet
1 tab PO DAILY
Breztri Aerosphere 10.7 GM HFA aerosol inhaler
2 puff inhalation R BID
loperamide 2 mg Tablet
2 mg PO TID PRN (Reason: diarrhea)
allopurinol 100 mg Tablet
100 mg PO DAILY
ascorbic acid (vitamin C) [Vitamin C] 500 mg Tablet
500 mg PO DAILY
albuterol sulfate [Ventolin HFA] 90 mcg/actuation Hfa Aerosol Inhaler
2 puff INHALATION Q6H PRN (Reason: SOB, wheezing)
ezetimibe 10 mg Tablet
10 mg PO DAILY
acetaminophen [Tylenol] 325 mg Capsule
650 mg PO Q4H PRN (Reason: temp >101)
Forrest Protect (zinc oxide) 12 % Cream
1 applic TOPICAL BID
Rx Instructions:
to coccyx
Forrest Protect (zinc oxide) 12 % Cream
1 applic TOPICAL BID PRN (Reason: coccyx prn wound care)
Insta-Glucose (with dextrin) 24 gram/31 gram Gel
1 ea PO PRN PRN (Reason: hypoglycemia)
Gvoke PFS 1-Pack Syringe 1 mg/0.2 mL Syringe
1 mg SC Q20M PRN (Reason: hypoglicemia)
Discontinued
doxycycline hyclate 100 mg Capsule
100 mg PO BID
spironolactone 25 mg Tablet
25 mg PO DAILY
ferrous sulfate 325 mg (65 mg iron) Tablet
325 mg PO DAILY
bumetanide 0.5 mg Tablet
0.5 mg PO DAILY
metoprolol tartrate 25 mg Tablet
25 mg PO BID
Eliquis 2.5 mg Tablet
2.5 mg PO BID
Jardiance 10 mg Tablet
10 mg PO DAILY
potassium chloride [Klor-Con M20] 20 MEQ tablet,ER particles/crystals
20 meq PO DAILY
Discharge Orders:
Discharge Patient (As Directed); Ordered 07/17/24
Ordered By: Hubert Jackson
Discharge Date and Time
Discharge Date/Time: 07/17/24 13:07
Print Language: FIJIAN
--- NOTE | 2024-07-17 10:00 | CM ---
Addendum entered by Yehuda Veliz 07/17/24 10:40:
Per hop picker time 1:00 p.m.
Both pt's family, ANGELES Marlow from [facility] and ANGELES Morales from [facility] are aware of hop picker time.
Per MINA marlow request, CM faxed requested pt's clinical to [phone].
Original Note:
CM following re: discharge planning.
Reviewed pt's chart, met with pt, spoke to pt's daughter Marry, ANGELES Marlow from [facility] and [facility] inbound customer service representative Andrew [phone]
Per RN Andrew, [facility] delivered all necessary DME to pt's room and 1:00 p.m. hop picker time requested.
CM spoke to ANGELES Marlow from [facility] and she confirmed that pt is accepted for admission today.
Discharge order noted. Both pt and his daughter are aware, expressed their agreement with discharge. IMM reviewed, placed on chart, daughter has a copy.
to arrange transportation BLS. PMNC completed and will be forwarded to shortly. to sign out of hospital DNR
[facility] nursing report: [phone] and ask for ANGELES Marlow
Discharge instructions fax: [phone]
D/C plan: return back to [facility] with [facility]
[2024-07-17 11:49] VITALS: BP 103/69
--- NOTE | 2024-07-17 12:39 | W.PN.NEPH.PH ---
Addendum entered and electronically signed by Lucia Waggoner MD 07/17/24 16:20:
for billing
ATN still likely
Original Note:
Today's Communication / Plan
-
await family meeting
Assessment/Plan
-
Impression:
Hypoxic respiratory failure
Hypotension
Acute kidney injury
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
Hyperkalemia
Left pleural effusion-s/p thoracentesis 1.1lit 07/13
Chronic HFpEF
Paroxysmal atrial fibrillation
COPD
Alcoholic cirrhosis
Cognitive decline
Transaminitis
Plan:
cr stable
BP stable on high dose midodrine
hb stable post pRBC
family is coming today and likely transition to comfort care
-
-
Date of Service: July 17, 2024
CC / HPI / ROS
-
Chief Complaint:
CHUY
History of Present Illness:
cr stable at 2.9
k normal
UOP not measured off ivey
off pressors, BP low but stable
no fever, s/p thoracentesis on 07/13
hgb stable t 8.5
Review of Systems:
no cp or sob at rest
has dry cough
no abd pain
Labs
-
Labs:
WBC 9.5 10^3/uL (4.8-10.8) 07/17/24 04:13
RBC 2.68 10^6/uL (4.70-6.10) L 07/17/24 04:13
Hgb 8.5 g/dL (13.0-18.0) L 07/17/24 04:13
Hct 23.7 % (39.0-52.0) L 07/17/24 04:13
Plt Count 190 10^3/uL (130-400) 07/17/24 04:13
Sodium 142 mmol/L (135-145) 07/17/24 04:13
Potassium 3.7 mmol/L (3.5-5.1) 07/17/24 04:13
Chloride 107 mmol/L (98-107) 07/17/24 04:13
Carbon Dioxide 21 mmol/L (22-30) L 07/17/24 04:13
BUN 58 mg/dl (9-20) H 07/17/24 04:13
Creatinine 2.9 mg/dL (0.7-1.3) H 07/17/24 04:13
eGFR 21.20 07/17/24 04:13
Glucose 90 mg/dl (70-99) 07/17/24 04:13
Calcium 9.2 mg/dl (8.4-10.2) 07/17/24 04:13
Fdb-V-Jhqalpsbesy Pept 5680 pg/ml 07/11/24 15:29
Albumin 3.4 g/dl (3.5-5.0) L 07/16/24 05:07
Physical Exam
-
Vital Signs:
Vital Signs
Temp Pulse Resp BP Pulse Ox
97.7 F 92 16 103/69 95
07/17/24 11:49 07/17/24 11:49 07/17/24 11:49 07/17/24 11:49 07/17/24 11:49
Cardiovascular:: Regular rate and rhythm
Respiratory:: Bilateral: Coarse
Lung Excursion:: Normal
Abdomen:: Nontender and Soft
Extremity Edema:: None: Bilateral:
Ivey Catheter: No
--- NOTE | 2024-07-17 15:46 | PN.CDI ---
CDI
- -
CDI:
Physician Documentation Request
Admit Date: 07/11/24 19:17
Dear Doctor Edilson,
Patient admitted for respiratory failure.
07/14 Nephrology PN: 'CHUY/CKD-possible ATN, HRS always in deferential too , cr relatively stable 2.9 and improving UOP. I suspect acute kidney injury is hemodynamically induced given profoundly low blood pressure. UA ?UTI, pending cx, Fena low 0.2.
oliguric with ivey, no hydro on US-keep ivey'
Please clarify the following:
____ - ATN was present on admission and is now resolved.
____ - ATN was present on admission and is still being monitored, evaluated or treated
____ - ATN was ruled out
____ - ATN is still a likely, suspected, probable diagnosis
____ - Other
Use of terms such as suspected, likely, concern for, or probable (associated with a specific diagnosis that is being evaluated, monitored, or treated as if it exists) are acceptable and can be coded in the inpatient setting, when documented at the
time of discharge.
Thank you,
Hiwot Rutledge RN, BSN
CDI Specialist
Available via [place] text
Please use your independent medical judgment in providing your response.
== END 2024-07-17 13:07 | disposition hospice, home (50) | DRG 291 ==
LOC: 3 WEST ACU 19:17
PROVIDERS: Internal Medicine; Physician Assistant; Physician Assistant Medical; Radiology Vascular & Interventional Radiology; Specialist; ADMITTING PHYSICIAN Hospitalist; ATTENDING PHYSICIAN Hospitalist; CONSULT PHYSICIAN Internal Medicine Cardiovascular Disease; CONSULT PHYSICIAN Internal Medicine Infectious Disease; CONSULT PHYSICIAN Specialist; EMERGENCY PHYSICIAN Student in an Organized Health Care Education/Training Program; FAMILY PHYSICIAN Internal Medicine Geriatric Medicine
PROC: 5A09357 Assistance with Respiratory Ventilation, Less than 24 Consecutive Hours, Continuous Positive Airway Pressure (ICD-10-PCS; 2024-07-11)
PROC: 02WY33Z Revision of Infusion Device in Great Vessel, Percutaneous Approach (ICD-10-PCS; 2024-07-13)
PROC: 0W9B3ZZ Drainage of Left Pleural Cavity, Percutaneous Approach (ICD-10-PCS; 2024-07-13)
PROC: 05H433Z Insertion of Infusion Device into Left Innominate Vein, Percutaneous Approach (ICD-10-PCS; 2024-07-13)
PROC: 30233N1 Transfusion of Nonautologous Red Blood Cells into Peripheral Vein, Percutaneous Approach (ICD-10-PCS; 2024-07-15)
DX: I13.0 Hypertensive heart and chronic kidney disease with heart failure and stage 1 through stage 4 chronic kidney disease, or unspecified chronic kidney disease (principal); I50.33 Acute on chronic diastolic (congestive) heart failure; J96.01 Acute respiratory failure with hypoxia; N17.0 Acute kidney failure with tubular necrosis; J18.9 Pneumonia, unspecified organism; F03.93 Unspecified dementia, unspecified severity, with mood disturbance; Z66 Do not resuscitate; Z51.5 Encounter for palliative care; J91.8 Pleural effusion in other conditions classified elsewhere; I48.92 Unspecified atrial flutter; I48.3 Typical atrial flutter; J44.0 Chronic obstructive pulmonary disease with (acute) lower respiratory infection; R57.9 Shock, unspecified; R78.81 Bacteremia; Z99.81 Dependence on supplemental oxygen; I25.10 Atherosclerotic heart disease of native coronary artery without angina pectoris; E11.22 Type 2 diabetes mellitus with diabetic chronic kidney disease; N18.32 Chronic kidney disease, stage 3b; D63.1 Anemia in chronic kidney disease; K70.30 Alcoholic cirrhosis of liver without ascites; K21.9 Gastro-esophageal reflux disease without esophagitis; M10.9 Gout, unspecified; N40.0 Benign prostatic hyperplasia without lower urinary tract symptoms; I48.0 Paroxysmal atrial fibrillation; E87.5 Hyperkalemia; T50.0X5A Adverse effect of mineralocorticoids and their antagonists, initial encounter; Z96.653 Presence of artificial knee joint, bilateral; I25.2 Old myocardial infarction; Z95.5 Presence of coronary angioplasty implant and graft; Z87.891 Personal history of nicotine dependence; Z79.899 Other long term (current) drug therapy; Z79.84 Long term (current) use of oral hypoglycemic drugs; Z79.01 Long term (current) use of anticoagulants; Z11.52 Encounter for screening for COVID-19
CPT/HCPCS: 88305; 32555; 70450; 71045; 71046; 76775; 80048; 80053; 80202; 81003; 81015; 82248; 82570; 82728; 82805; 82945; 82962; 83540; 83550; 83605; 83615; 83735; 83880; 83986; 84132; 84155; 84157; 84300; 84478; 84484; 85014; 85018; 85025; 85027; 85610; 86850; 86900; 86901; 86920; 87015; 87040; 87070; 87086; 87150; 87205; 87502; 87641; 87811; 88112; 89051; 92610; 93005; 93306; 94640; 94660; 96374; 96375; 97163; 97167; 97530; 97535; 99285; P9016; P9047